=== PATIENT | female | born 1965 | race Caucasian/White ===

== ENCOUNTER 2017-11-25 17:34 | Emergency (ER) | payer BC ==
[2017-11-25 17:39] VITALS: BP 129/85; PULSE 79; TEMP 98; BMI 47.7
--- NOTE | 2017-11-25 17:50 | PDOC ---
History of Present Illness - General Chief Complaint: Injury Stated Complaint: FALL/INJURY Time Seen by Provider: 11/25/17 17:42 History Source: Patient Exam Limitations: No Limitations - History of Present Illness Initial Comments: 11/25/17 18:27 Best Contact: PCP: Dr. Stovall Pmhx: Asthma/no history of intubation or recent admissions, hypertension, diastolic dysfunction Pshx: 2013: Laparoscopic cholecystectomy/1997, 1999: , BTL 2002 Allergies: NO KNOWN DRUG ALLERGIES FH: Mother 73 years old and alive with hypertension and asthma, father at 58 years ago from melanoma Social Hx: Cigarettes/ 0 Alcohol/ 0 Drugs/0 LMP:N/A 52-year-old female presents to the emergency department complaining of right upper arm pain, right sided mid back pain s/p tripped and fell. Patient states while walking down a flight of stairs, she was leading with the right foot when she slipped and missed 4 steps causing her to hit her right mid back against a shelf that runs along the staircase causing her to fall back. Patient denies LOC , head injury, headache, dizziness, lightheadedness, facial pains, sore throat, neck stiffness, chest pain, shortness of breath, abdominal pains, flank pains, midline back pains, urinary symptoms: Frequency/urgency/hesitancy, hematuria. Patient states the pain is on the most lateral right muscular mid back which is exacerbated on touch and alleviated minimally at rest in a sitting position. Past History - Past Medical History Allergies/Adverse Reactions: Allergies Allergy/AdvReac Type Severity Reaction Status Date / Time No Known Drug Allergies Allergy Verified 11/25/17 17:34 Home Medications: Ambulatory Orders Hydrochlorothiazide 25 mg PO DAILY 09/03/15 Docusate Sodium [Colace -] 100 mg PO BID #14 capsule 11/25/17 Lisinopril [Zestril] 2.5 mg PO ASDIR 11/25/17 Oxycodone HCl/Acetaminophen [Percocet 5-325 mg Tablet] 1 - 2 tab PO Q6H #12 tab MDD 5 11/25/17 Asthma: Yes COPD: No HTN: Yes - Surgical History Abdominal Surgery: Yes Cholecystectomy: Yes - Immunization History Immunization Up to Date: Yes (FLU UP TO DATE) - Suicide/Smoking/Psychosocial Hx Smoking Status: No Smoking History: Never smoked Number of Cigarettes Smoked Daily: 0 Hx Alcohol Use: No Drug/Substance Use Hx: No Substance Use Type: None Review of Systems - Review of Systems Able to Perform ROS?: Yes Comments:: 11/25/17 18:32 CONSTITUTIONAL: Absent: fever, chills, diaphoresis, generalized weakness, malaise, loss of appetite HEENT: Absent: rhinorrhea, nasal congestion, throat pain, throat swelling, difficulty swallowing, mouth swelling, ear pain, eye pain, visual Changes CARDIOVASCULAR: Absent: chest pain, loss of consciousness, palpitations, irregular heart rate, peripheral edema RESPIRATORY: Absent: cough, shortness of breath, dyspnea with exertion, orthopnea, wheezing, stridor, hemoptysis GASTROINTESTINAL: Absent: abdominal pain, abdominal distension, nausea, vomiting, diarrhea, constipation, melena, hematochezia GENITOURINARY: Absent: dysuria, frequency, urgency, hesitancy, hematuria, flank pain, genital pain MUSCULOSKELETAL: +mid right lat muscular mid back pain Neg SLR Right mid humerus pain neg shoulder pain Neg ext numnbess/tingling sensation Absent: myalgia, arthralgia, joint swelling SKIN: Absent: rash, itching, pallor HEMATOLOGIC/IMMUNOLOGIC: Absent: easy bleeding, easy bruising, lymphadenopathy, frequent infections ENDOCRINE: Absent: unexplained weight gain, unexplained weight loss, heat intolerance, cold intolerance NEUROLOGIC: Absent: headache, focal weakness or paresthesias, dizziness, unsteady gait, seizure, mental status changes, bladder or bowel incontinence PSYCHIATRIC: Absent: anxiety, depression, suicidal or homicidal ideation, hallucinations. 11/25/17 18:32 Is the patient limited Czech proficient: No *Physical Exam - Vital Signs Last Vital Signs Temp Pulse Resp BP Pulse Ox 98.0 F 79 20 129/85 100 11/25/17 17:35 11/25/17 17:35 11/25/17 17:35 11/25/17 17:35 11/25/17 17:35 - Physical Exam Comments: 11/25/17 18:32 GENERAL: Well developed, well nourished. Awake and alert. No acute distress. HEENT: Normocephalic, atraumatic. PERRLA, EOMI. No conjunctival pallor. Sclera are non- icteric. Moist mucous membranes. Oropharynx is clear. NECK: Supple. Full ROM. No JVD. Carotid pulses 2+ and symmetric, without bruits. No thyromegaly. No lymphadenopathy. CARDIOVASCULAR: Regular rate and rhythm. No murmurs, rubs, or gallops. Distal pulses are 2+ and symmetric. PULMONARY: No evidence of respiratory distress. Lungs clear to auscultation bilaterally. No wheezing, rales or rhonchi. ABDOMINAL: Soft. Non-tender. Non-distended. No rebound or guarding. No organomegaly. Normoactive bowel sounds. MUSCULOSKELETAL Normal range of motion at all joints. No bony deformities or tenderness. No CVA tenderness. EXTREMITIES: No cyanosis. No clubbing. No edema. No calf tenderness. SKIN: Warm and dry. Normal capillary refill. No rashes. No jaundice. NEUROLOGICAL: Alert, awake, appropriate. Cranial nerves 2-12 intact. No deficits to light touch and temperature in face, upper extremities and lower extremities. No motor deficits in the in face, upper extremities and lower extremities. Normoreflexic in the upper and lower extremities. Normal speech. Toes are down- going bilaterally. Gait is normal without ataxia. PSYCHIATRIC: Cooperative. Good eye contact. Appropriate mood and affect. Progress Note - Progress Note Progress Note: 0953hrs: Patient so far had Flexeril 10 mg by mouth, Toradol 50 mg IM, Percocet 5/325 one tab by mouth. Pt states she feels better and wishes to be d/c Medical Decision Making - Medical Decision Making 11/25/17 18:34 52-year-old female presents to the ER complaining of right sided mid lateral back with mid right humeral pain after she missed her footing and fell down about 4 steps landing on her mid back against the shelf that runs along the right side of her staircase. No LOC. Patient had an x-ray of her right upper arm which was negative. Absolutely no midline tenderness from the superior aspect of her cervical spine all the way down to her coccyx spine with percussion. Patient was given Toradol 60 mg IM with 10 mg of Flexeril. Patient will be discharged to follow up with neurosurgery for back pain. *DC/Admit/Observation/Transfer Diagnosis at time of Disposition: Fall (on) (from) other stairs and steps, initial encounter Contusion Qualifiers: Encounter type: initial encounter Contusion area: upper arm Laterality: right Qualified Code(s): S40.021A - Contusion of right upper arm, initial encounter Back pain Qualifiers: Back pain location: thoracic back pain Chronicity: acute Back pain laterality: right Qualified Code(s): M54.6 - Pain in thoracic spine - Discharge Dispostion Condition at time of disposition: Stable Decision to Admit order: No - Prescriptions Prescriptions: Docusate Sodium [Colace -] 100 mg PO BID #14 capsule Oxycodone HCl/Acetaminophen [Percocet 5-325 mg Tablet] 1 - 2 tab PO Q6H #12 tab MDD 5 - Referrals Referrals: Laci Gilbert MD [Primary Care Provider] - Sheldon Larose MD [Staff Physician] - - Patient Instructions Printed Discharge Instructions: DI for Contusion, How to Prevent Falls Additional Instructions: Ice; 20 mins on alternating with 20 mins off for 48 hours while awake. Rest Elevate Follow up with your neurosurgeon or the one listed on the discharge form. Return to the ER for severe/persistent/worsening symptoms, extremity numbness/ tingling sensation. Percocet prescription take 1 tablet every 6 hours for excruciating pain - Post Discharge Activity Forms/Work/School Notes: Back to Work
[2017-11-25] MEDS ORDERED: KETOROLAC TROMETHAMINE 60 MG/2 ML VIAL IM ONE (18:23)
[2017-11-25] MEDS ORDERED: CYCLOBENZAPRINE HCL 10 MG TABLET (FP) PO ONE (18:24)
[2017-11-25] MEDS ORDERED: KETOROLAC TROMETHAMINE 60 MG/2 ML VIAL ONE (18:26)
[2017-11-25] MEDS ORDERED: CYCLOBENZAPRINE HCL 10 MG TABLET (FP) ONE ×2 (18:27→18:28)
== END 2017-11-25 20:38 | disposition home or self-care (01) ==
LOC: JER 17:34
PROC: 3E0233Z Introduction of Anti-inflammatory into Muscle, Percutaneous Approach (ICD-10-PCS; principal; 2017-11-25)
DX: S29.8XXA Other specified injuries of thorax, initial encounter (principal); S40.021A Contusion of right upper arm, initial encounter; W10.8XXA Fall (on) (from) other stairs and steps, initial encounter; Y93.89 Activity, other specified; Y92.018 Other place in single-family (private) house as the place of occurrence of the external cause; I10 Essential (primary) hypertension; J45.909 Unspecified asthma, uncomplicated
CPT/HCPCS: 72070-TC-FY; 72100-TC-FY; 73060-TC-RT-FY; 99281-25

== ENCOUNTER 2018-05-18 20:31 | Emergency (ER) | payer BC ==
[2018-05-18 20:38] VITALS: BP 150/74; PULSE 77; TEMP 97.4; BMI 47.7
--- NOTE | 2018-05-18 20:42 | PDOC ---
History of Present Illness - General Chief Complaint: Headache Stated Complaint: DIZZY Time Seen by Provider: 05/18/18 20:41 - History of Present Illness Initial Comments: 05/18/18 20:59 The patient is a 52 year old female with a history of HTN who presents for evaluation of headache, dizziness, and nausea. The patient report acute onset of room spinning dizziness after eating dinner today with associated frontal pressure like headache and nausea prompting her presentation to the ED for further evaluation. She notes that her dizziness has somewhat improved but is still present. She denies similar symptoms in the past and otherwise denies fevers, chills, SOB, chest pain, vomiting, abdominal pain, numbness, tingling, weakness, or changes with urination or bowel movements. Past History - Past Medical History Allergies/Adverse Reactions: Allergies Allergy/AdvReac Type Severity Reaction Status Date / Time No Known Drug Allergies Allergy Verified 05/18/18 20:39 Home Medications: Ambulatory Orders Hydrochlorothiazide 25 mg PO DAILY 09/03/15 Lisinopril [Zestril] 2.5 mg PO ASDIR 11/25/17 Meloxicam [Mobic] 15 mg PO DAILY 05/18/18 Asthma: Yes COPD: No HTN: Yes - Surgical History Abdominal Surgery: Yes Cholecystectomy: Yes - Immunization History Immunization Up to Date: Yes (FLU UP TO DATE) - Suicide/Smoking/Psychosocial Hx Smoking Status: No Smoking History: Never smoked Have you smoked in the past 12 months: No Number of Cigarettes Smoked Daily: 0 Information on smoking cessation initiated: No Hx Alcohol Use: No Drug/Substance Use Hx: No Substance Use Type: None Review of Systems - Review of Systems Comments:: 05/18/18 21:01 Constitutional: No fevers, chills, fatigue, malaise HEENT: Visual changes. No Rhinorrhea, nasal congestion, Cardiovascular: No chest pain, syncope, palpitations, lightheadedness Respiratory: No Cough, SOB, Hemoptysis, Gastrointestinal: Nausea. No Abdominal pain, Vomiting, Constipation, Diarrhea, Melena Genitourinary: No Dysuria, Frequency, Urgency, Hesitancy, Hematuria, Flank pain Musculoskeletal: No Myalgia, arthralgia Skin: No rashes, itching, bruising, pallor Neurologic: Headache, Dizziness. No Numbness, Weakness, or Tingling Psychiatric: No Hallucinations. No SI or HI *Physical Exam - Vital Signs Last Vital Signs Temp Pulse Resp BP Pulse Ox 97.4 F L 77 16 150/74 99 05/18/18 20:36 05/18/18 20:36 05/18/18 20:36 05/18/18 20:36 05/18/18 20:36 - Physical Exam Comments: 05/18/18 21:02 General Appearance: Nourished. No Apparent Distress HEENT: EOMI, JOAQUÍN. No Pharyngeal Erythema, Tonsillar Exudate, Tonsillar Erythema Neck: No Cervical Lymphadenopathy Respiratory/Chest: Lungs Clear, Normal Breath Sounds. No Crackles, Rales, Rhonchi, Wheezing Cardiovascular: Regular Rhythm, Regular Rate. No Murmur, Gallops, Rubs Gastrointestinal/Abdominal: Normal Bowel Sounds, Soft. No Guarding, Rebound, Tenderness Musculoskeletal: No CVA Tenderness Extremity: Normal Capillary Refill Integumentary: Normal Color, Dry, Warm Neurologic: vacation planner II-XII NML intact, Fully Oriented, Alert, Normal Mood/Affect, Normal Response, Motor Strength 5/5. Normal Finger to Nose and Heel to Jim ED Treatment Course - LABORATORY CBC & Chemistry Diagram: 05/18/18 21:10 05/18/18 21:10 Medical Decision Making - Medical Decision Making 05/18/18 21:02 The patient is a 52 year old female with a history of HTN who presents for evaluation of headache, dizziness, and nausea. Differential includes but is not limited to: Migraine headache, Vertigo, Intracranial process, Infectious, Metabolic Derangement. Given the patient's history and physical exam, we will obtain a cbc, cmp, ekg, head CT to evaluate further. We will treat with iv fluids, reglan, benadryl, tylenol, meclazine and continue to monitor and reassess while here in the ED. 05/18/18 22:26 CBC, cmp, are unremarkable. Head CT is unremarkable as preliminarily read by our production proofreader radiologist. The patient reports improvement in her symptoms. We are comfortable discharging the patient home with neurology follow up. We discussed the results, plan, and return precautions with the patient who voiced understanding and is agreeable with the plan. *DC/Admit/Observation/Transfer Diagnosis at time of Disposition: Dizziness Headache Qualifiers: Headache type: unspecified Headache chronicity pattern: unspecified pattern Intractability: not intractable Qualified Code(s): R51 - Headache - Discharge Dispostion Disposition: HOME Condition at time of disposition: Stable Decision to Admit order: No - Referrals Referrals: Laci Gilbert MD [Primary Care Provider] - Fernando Colon MD [Staff Physician] - - Patient Instructions Printed Discharge Instructions: DI for Headache Additional Instructions: Please return to the ER if you experience concerning or worsening symptoms including worsening difficulty breathing, weakness, or chest pain, numbness, vomiting, worsening headache. Your lab results and Head CT were normal here in the ER. Please call to schedule a follow up appointment with our Neurologist Dr. Colon within 2-3 days to discuss your ER visit and further management of your symptoms. - Post Discharge Activity
[2018-05-18] MEDS ORDERED: SODIUM CHLORIDE 1,000 ML IV STA (20:49)
[2018-05-18] MEDS ORDERED: METOCLOPRAMIDE HCL INJECTION 10 MG/2 ML VIAL IVPUSH ONE (20:49)
[2018-05-18] MEDS ORDERED: MECLIZINE HCL 25 MG TABLET (FP) PO ONE (20:49)
[2018-05-18] MEDS ORDERED: ACETAMINOPHEN 1000 MG/100 ML VIAL (NON FORMULARY) IVPB ONE (20:55)
[2018-05-18] MEDS ORDERED: MECLIZINE HCL 25 MG TABLET (FP) ONE (20:58)
[2018-05-18] MEDS ORDERED: METOCLOPRAMIDE HCL INJECTION 10 MG/2 ML VIAL ONE (20:58)
[2018-05-18] MEDS ORDERED: ACETAMINOPHEN INJECTION 100 ML IVPB ONE (20:59)
[2018-05-18 21:17] LABS: BASO % 0.5 % (0-2.0); EOS % 3.4 % (0-4.5); HEMATOCRIT 44.2 % (32.4-45.2); HEMOGLOBIN 14.6 GM/dL (10.7-15.3); LYMPH % 24.7 % (8-40); MCH 27.1 pg (25.7-33.7); MEAN CELL VOLUME 82.3 fl (80-96); MEAN PLT VOLUME 8.5 fl (7.5-11.1); MONO % 4.7 % (3.8-10.2); NEUT % 66.7 % (42.8-82.8); PLATELET COUNT 292 K/MM3 (134-434); RBC 5.37 M/mm3 (3.60-5.2); RDW 14.9 % (11.6-15.6); WHITE BLOOD COUNT 10.1 K/mm3 (4.0-10.0)
[2018-05-18 21:45] LABS: ALBUMIN 4.1 g/dl (3.4-5.0); ALK PHOS 122 U/L (45-117); ANION GAP 10 MMOL/L (8-16); BILIRUBIN,TOTAL 0.3 mg/dL (0.2-1); BLOOD UREA NITROGEN 24 mg/dL (7-18); CALCIUM 8.8 mg/dL (8.5-10.1); CHLORIDE 104 mmol/L (98-107); CO2 26 mmol/L (21-32); CREATININE 0.8 mg/dL (0.55-1.3); GLUCOSE,RANDOM 87 mg/dL (74-106); POTASSIUM 4.1 mmol/L (3.5-5.1); SGOT/AST 14 U/L (15-37); SGPT/ALT 22 U/L (13-61); SODIUM 140 mmol/L (136-145); TOT PROT 7.8 g/dl (6.4-8.2)
--- NOTE | 2018-05-18 22:59 | PDOC ---
Attending Attestation - [facility] HPI: 05/18/18 23:03 The patient is a 52 year old female, with a significant PMH of HTN, optimal migraine, and asthma, who presents to the emergency department complaining of a headache and vertigo after eating dinner today. The patient states she had a Big Mac for dinner and started to feel like the room was spinning accompanied with mild visual changes. The episode lasted for 2 to 3 minutes. The patient also endorses associated symptoms of tingling of the hands, nausea and frontal pressure headache. The patient denies numbness or weakness. The patient denies chest pain and shortness of breath. Denies fever, chills, vomit, diarrhea and constipation. Denies dysuria, frequency, urgency and hematuria. Allergies: NKDA Past surgical history:Abdominal and cholecystectomy Social history: None reported PCP: None reported Documentation prepared by Teresa August, acting as mobile paramedical examiner for Nadia Chung MD. - Physicial Exam PE: 05/18/18 23:04 Well developed, well nourished. Awake and alert. No acute distress. HEENT: Normocephalic, atraumatic. PERRLA, EOMI. No conjunctival pallor. Sclera are non- icteric. Moist mucous membranes. Oropharynx is clear. NECK: Supple. Full ROM. No JVD. Carotid pulses 2+ and symmetric, without bruits. No thyromegaly. No lymphadenopathy. CARDIOVASCULAR: Regular rate and rhythm. No murmurs, rubs, or gallops. Distal pulses are 2+ and symmetric. PULMONARY: No evidence of respiratory distress. Lungs clear to auscultation bilaterally. No wheezing, rales or rhonchi. ABDOMINAL: +Protruded abdomen but Soft. Non-tender. Non-distended. No rebound or guarding. No organomegaly. Normoactive bowel sounds. MUSCULOSKELETAL Normal range of motion at all joints. No bony deformities or tenderness. No CVA tenderness. EXTREMITIES: No cyanosis. No clubbing. No edema. No calf tenderness. SKIN: Warm and dry. Normal capillary refill. No rashes. No jaundice. NEUROLOGICAL: Alert, awake, appropriate. Cranial nerves 2-12 intact. PSYCHIATRIC: Cooperative. Good eye contact. Appropriate mood and affect. Documentation prepared by Teresa August, acting as mobile paramedical examiner for Nadia Chung MD. <Teresa August - Last Filed: 05/18/18 23:03> - Resident Resident Name: Jas Wilder - ED Attending Attestation I have performed the following: I have examined & evaluated the patient, The case was reviewed & discussed with the resident, I agree w/resident's findings & plan, Exceptions are as noted - Medical Decision Making 05/21/18 01:[address] scan head no gross focal neuro deficits symptoms improved and pt d /c home <Nadia Chung - Last Filed: 05/21/18 01:10>
--- NOTE | 2018-05-19 18:28 | EKG ---
Test Reason : Blood Pressure : / mmHG Vent. Rate : 074 BPM Atrial Rate : 074 BPM P-R Int : 156 ms QRS Dur : 092 ms QT Int : 406 ms P-R-T Axes : 059 021 035 degrees QTc Int : 450 ms NORMAL SINUS RHYTHM NORMAL ECG WHEN COMPARED WITH ECG OF 17-NOV-2013 08:59, NO SIGNIFICANT CHANGE WAS FOUND Confirmed by YANET GAO MD ([id number]) on 05/19/2018 6:28:34 PM Referred By: Confirmed By:YANET GAO MD
== END 2018-05-18 22:42 | disposition home or self-care (01) ==
LOC: JER 20:31
PROC: 3E033NZ Introduction of Analgesics, Hypnotics, Sedatives into Peripheral Vein, Percutaneous Approach (ICD-10-PCS; principal; 2018-05-18)
PROC: 3E033GC Introduction of Other Therapeutic Substance into Peripheral Vein, Percutaneous Approach (ICD-10-PCS; 2018-05-18)
PROC: 3E033GC Introduction of Other Therapeutic Substance into Peripheral Vein, Percutaneous Approach (ICD-10-PCS; 2018-05-18)
DX: R51 Headache (principal); R42 Dizziness and giddiness; I10 Essential (primary) hypertension; Z87.09 Personal history of other diseases of the respiratory system; Z86.69 Personal history of other diseases of the nervous system and sense organs
CPT/HCPCS: 36415; 70450-TC; 80053; 85025; 93005; 93010; 99283-25; J0131; J7030

== ENCOUNTER 2018-11-03 05:06 | Day surgery (SDC) | payer BC ==
[2018-10-29 17:31] VITALS: BMI 50.1
[2018-11-03] MEDS ORDERED: BUPIVACAINE HCL/PF 0.25% (2.5MG/ML) 10 ML VIAL ONE (07:41)
[2018-11-03] MEDS ORDERED: methylPREDNISolone ACET (DEPO) 80 MG/1 ML VIAL ONE (07:41)
[2018-11-03] MEDS ORDERED: MIDAZOLAM HCL 2 MG/2 ML SINGLE DOSE VIAL ONE (08:25)
[2018-11-03] MEDS ORDERED: DEXAMETHASONE SOD PHOSPHATE 4 MG/1 ML VIAL ONE (08:38)
[2018-11-03] MEDS ORDERED: BUPIVACAINE HCL/PF 0.25% (2.5MG/ML) 10 ML VIAL IJ ONE (08:49)
[2018-11-03] MEDS ORDERED: LIDOCAINE HCL 1% PRESERVATIVE FREE - 30ML VIAL IJ ONE (08:49)
[2018-11-03] MEDS ORDERED: methylPREDNISolone ACET (DEPO) 80 MG/1 ML VIAL IJ ONE (08:49)
[2018-11-03] MEDS ORDERED: ONDANSETRON 4 MG/2 ML VIAL IVPUSH PRN (11:45)
[2018-11-03] MEDS ORDERED: oxyCODONE HCL 5 MG TABLET PO PRN (11:45)
[2018-11-03] MEDS ORDERED: LACTATED RINGERS SOLUTION 1,000 ML IV SCH (11:45)
[2018-11-03] MEDS ORDERED: ACETAMINOPHEN 325 MG TABLET (FP) PO PRN (11:45)
[2018-11-03 12:06] VITALS: BP 115/66; PULSE 86; TEMP 97.9
--- NOTE | 2018-11-04 06:16 | OP ---
DATE OF OPERATION: 11/03/2018 PREOPERATIVE DIAGNOSIS: L4-L5 spondylolisthesis with left L4 and L5 radiculopathy. POSTOPERATIVE DIAGNOSIS: L4-L5 spondylolisthesis with left L4 and L5 radiculopathy. ATTENDING SURGEON: Sheldon Jack MD PROCEDURE: 1. Left L4-L5 epidural steroid injection. 2. Intraoperative fluoroscopy. ANESTHESIA: Local with IV sedation. ANESTHESIOLOGIST: Bashir Soto MD INDICATIONS: The patient is a 53-year-old female with intractable lower back pain and left lower extremity radiculopathy. X-rays demonstrate L4-L5 spondylolisthesis. Because of intractable symptoms and failure of conservative treatment, she is here for the first epidural steroid injection. The risks of the procedure include, but are not limited to, bleeding, infection, spinal headache, and neurological injury. The patient understands the indications for the procedure, the procedure in detail, risks and benefits, and alternative treatments for her lumbar condition, and she wishes to proceed. No guarantees were given for a favorable outcome. PROCEDURE IN DETAIL: After the patient was taken to the operating room, she was placed in the prone position with a pillow under her hips. Lumbar region was cleaned with alcohol and prepped with Betadine. A skin wheal was raised with 5 mL of 1% Xylocaine. A 20-degree spinal needle was inserted under AP and lateral fluoroscopic guidance from a left-sided approach to L4-L5 interlaminar space. Loss of resistance technique was utilized, and there was no CSF or blood backflow. Depo-Medrol 80 mg and 1 mL of 0.25% Marcaine were injected, and the needle was withdrawn and sterile bandage was applied. Because of the patients body habitus, a 5-inch 22-gauge spinal needle was needed in order to reach the epigastric space adequately. The patient suffered from a headache and has no nausea or vomiting. She was moving bilateral lower extremities after the injection. OR time-out procedure was followed. SHELDON JACK M.D. [id number]
== END 2018-11-03 11:30 | disposition home or self-care (01) ==
LOC: JASU-SURG 05:06
PROVIDERS: ATTEND Neurological Surgery
PROC: 3E0R33Z Introduction of Anti-inflammatory into Spinal Canal, Percutaneous Approach (ICD-10-PCS; 2018-11-03)
PROC: B01BZZZ Fluoroscopy of Spinal Cord (ICD-10-PCS; 2018-11-03)
PROC: 3E0R3BZ Introduction of Anesthetic Agent into Spinal Canal, Percutaneous Approach (ICD-10-PCS; principal; 2018-11-03 08:30)
DX: M43.16 Spondylolisthesis, lumbar region (principal); M54.16 Radiculopathy, lumbar region
CPT/HCPCS: 76000-TC-FY

== ENCOUNTER 2018-12-15 13:32 | Inpatient (IN) | payer BC ==
[2018-12-15] MEDS ORDERED: dilTIAZem HCL 50 MG/10 ML - 10 ML VIAL IVPUSH ONE ×2 (13:37→14:02)
--- NOTE | 2018-12-15 13:44 | PDOC ---
Attending Attestation - Resident Resident Name: Denton Temple - ED Attending Attestation I have performed the following: I have examined & evaluated the patient, The case was reviewed & discussed with the resident, I agree w/resident's findings & plan, Exceptions are as noted - HPI HPI: 12/15/18 13:48 53y F hypertension, ?diastolic failure?, Presents with sudden onset of palpitations, chest pressure that started approximately 20 minutes prior to presentation. States patient states that she was well this morning was otherwise asymptomatic after eating lunch she started feeling lightheaded, and some chest pressure so was brought to the ER for evaluation. 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 The patient denies any stimulant use, new medications. Upon arrival to the emergency department the patient was on a monitor her heart rate was in the 140s appeared to be irregularly irregular, cw afib. Her blood pressure was 140/68. She did endorse some chest pressure but was mentating well. The patient denies any abdominal pain, nausea, vomiting, back pain, headache, current lightheadedness, urinary bowel incontinence. new onset rapid afib, pt given 10mg of diltiazem with improvement of rate to the 112 - Physicial Exam PE: 12/15/18 14:05 GENERAL: The patient is awake, alert, and fully oriented, Nontoxic - in no acute distress. HEAD: Normocephalic, atraumatic. EYES: extraocular movements intact, sclera anicteric, conjunctiva clear. ENT: Normal voice, Moist mucous membranes. NECK: Normal range of motion, supple LUNGS: Breath sounds equal, clear to auscultation bilaterally. No wheezes, no rhonchi, no rales. HEART: tachycardic, irregularly irregular ABDOMEN: Soft, nontender,No guarding, no rebound. . No CVA tenderness EXTREMITIES: Normal range of motion, b/l LE edema. no calf tenderness, negative homans PSYCH: Normal mood, normal affect. SKIN: Warm, Dry, normal turgor, - Critical Care Time Total Critical Care Time: 45 Critical Care Statement: The care of this patient involved high complexity decision making to prevent further life threatening deterioration of the patient 's condition and/or to evaluate & treat vital organ system(s) failure or risk of failure. - Medical Decision Making 12/18/18 22:26 see above Heart Score/ECG Review - ECG Impressions Comment:: 12/15/18 14:10 Twelve-lead EKG was performed and reviewed by me. Original EKG performed at 1323 Irregularly irregular, rate of 143 Poor baseline with artifact no obvious signs of ST elevations or depressions Impression A. fib with RVR repeta ekg performed 13:38 Twelve-lead EKG was performed and reviewed by me. irregularly irregular rate of [address]-T wave changes Impression: A. fib with RVR
[2018-12-15] MEDS ORDERED: ASPIRIN 81 MG CHEWABLE TABLETS PO ONE (13:53)
[2018-12-15] MEDS ORDERED: dilTIAZem HCL 30 MG TABLET (FP) PO ONE (13:53)
--- NOTE | 2018-12-15 14:03 | CON.CARD ---
Consult Consult Specialty:: Cardiology - History of Present Illness History of Present Illness: 53y F hypertension, ?diastolic failure?, Presents with sudden onset of palpitations, chest pressure that started approximately 20 minutes prior to presentation. States patient states that she was well this morning was otherwise asymptomatic after eating lunch she started feeling lightheaded, and some chest pressure so was brought to the ER for evaluation. She states she occasionally has a extra beat here and there due to PVCs that is known by her gamma operator but has never felt like she is now. The patient denies any stimulant use, new medications. Upon arrival to the emergency department the patient was on a monitor her heart rate was in the 140s appeared to be irregularly irregular, cw afib. Her blood pressure was 140/68. She did endorse some chest pressure but was mentating well. The patient denies any abdominal pain, nausea, vomiting, back pain, headache, current lightheadedness, urinary bowel incontinence. 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 never smoked previously drank socially but now doesn't drink at all - Past Medical History Pulmonary: Yes: Asthma. No: Bronchitis, Cancer, COPD, O2 Dependent, Pneumonia, Previously Intubated, Pulmonary Embolus, Pulmonary Fibrosis, Sleep Apnea, Other Hepatobiliary: Yes: Cholelithiasis - Alcohol/Substance Use Hx Alcohol Use: No - Smoking History Smoking history: Never smoked Have you smoked in the past 12 months: No Aproximately how many cigarettes per day: 0 Home Medications - Allergies Allergies/Adverse Reactions: Allergies Allergy/AdvReac Type Severity Reaction Status Date / Time No Known Drug Allergies Allergy Verified 12/15/18 13:44 - Home Medications Home Medications: Ambulatory Orders Hydrochlorothiazide 25 mg PO DAILY 09/03/15 Lisinopril [Zestril] 2.5 mg PO DAILY 11/25/17 Meloxicam [Mobic] 15 mg PO DAILY 05/18/18 Ibuprofen [Motrin -] 600 mg PO BID 10/29/18 Methylprednisolone [Medrol Dose Rush] 4 mg PO ASDIR 10/29/18 Ranitidine HCl [Zantac] 150 mg PO DAILY 10/29/18 Review of Systems - Review of Systems Constitutional: reports: No Symptoms Eyes: reports: No Symptoms HENT: reports: No Symptoms Neck: reports: No Symptoms Cardiovascular: reports: Palpitations Gastrointestinal: reports: No Symptoms Genitourinary: reports: No Symptoms Breasts: reports: No Symptoms Reported Musculoskeletal: reports: No Symptoms Integumentary: reports: No Symptoms Neurological: reports: No Symptoms Endocrine: reports: No Symptoms Hematology/Lymphatic: reports: No Symptoms Psychiatric: reports: No Symptoms Vital Signs: Vital Signs Temperature 98.2 F 12/15/18 13:37 Pulse Rate 146 H 12/15/18 13:37 Respiratory Rate 22 H 12/15/18 13:37 Blood Pressure 133/46 L 12/15/18 13:37 O2 Sat by Pulse Oximetry (%) 100 12/15/18 13:37 Constitutional: Yes: Well Nourished, No Distress, Calm Eyes: Yes: WNL, Conjunctiva Clear, EOM Intact HENT: Yes: WNL, Atraumatic, Normocephalic Neck: Yes: WNL, Supple, Trachea Midline Respiratory: Yes: WNL, Regular, CTA Bilaterally Gastrointestinal: Yes: WNL, Normal Bowel Sounds Renal/: Yes: WNL Cardiovascular: Yes: Pulse Irregular Heart Sounds: Yes: S1, S2 Murmur: Yes: Systolic Murmur, Grade 3 Musculoskeletal: Yes: WNL Extremities: Yes: WNL Integumentary: Yes: WNL Neurological: Yes: WNL, Alert, Oriented ...Motor Strength: WNL Psychiatric: Yes: WNL, Alert, Oriented Imaging - Results Chest X-ray: Pending EKG: Pending Problem List - Problems (1) Abnormal resting ECG findings Code(s): R94.31 - ABNORMAL ELECTROCARDIOGRAM [ECG] [EKG] (2) Asthma Code(s): J45.909 - UNSPECIFIED ASTHMA, UNCOMPLICATED (3) Back pain Code(s): M54.9 - DORSALGIA, UNSPECIFIED Qualifiers: Back pain location: thoracic back pain Chronicity: acute Back pain laterality: right Qualified Code(s): M54.6 - Pain in thoracic spine (4) Bradycardia Code(s): R00.1 - BRADYCARDIA, UNSPECIFIED (5) Cholecystitis, acute Code(s): K81.0 - ACUTE CHOLECYSTITIS (6) Contusion Code(s): T14.8XXA - OTHER INJURY OF UNSPECIFIED BODY REGION, INITIAL ENCOUNTER Qualifiers: Encounter type: initial encounter Contusion area: upper arm Laterality: right Qualified Code(s): S40.021A - Contusion of right upper arm, initial encounter (7) Dizziness Code(s): R42 - DIZZINESS AND GIDDINESS (8) Fall (on) (from) other stairs and steps, initial encounter Code(s): W10.8XXA - FALL (ON) (FROM) OTHER STAIRS AND STEPS, INITIAL ENCOUNTER (9) Headache Code(s): R51 - HEADACHE Qualifiers: Headache type: unspecified Headache chronicity pattern: unspecified pattern Intractability: not intractable Qualified Code(s): R51 - Headache (10) Morbid obesity Code(s): E66.01 - MORBID (SEVERE) OBESITY DUE TO EXCESS CALORIES (11) Right lower lobe pneumonia Code(s): J18.9 - PNEUMONIA, UNSPECIFIED ORGANISM Qualifiers: Pneumonia type: due to unspecified organism Qualified Code(s): J18.1 - Lobar pneumonia, unspecified organism Assessment/Plan new onset af rvr [id number] score 2 htn morbid obesity ?MVP Plan echo rate control cardizem telemetry AC lovonox most likely will need shelter ac with NOACs
--- NOTE | 2018-12-15 14:08 | PDOC ---
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 20-25 min prior to arrival in the ED). Unable to identity eliciting events. Denies associated SOB. Denies h/o of similar previous episodes. EKG was performed in the PACU, which revealed rapid a-fib with RVR. Pt denies h/o of a-fib. 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 Reports last stress echo three years ago was normal , but believes she has a h/o of diastolic dysfunction. In normal state of health recently. Denies change in medications. PCP: Social Hx: Denies increased caffeine intake or dietary supplements. Medical Hx: - HTN - Asthma - Morbid obesity Review of Systems: In addition to that documented in the HPI above, the additional ROS was obtained : Constitutional: Denies fevers or chills Head: Denies vision changes ENMT: Denies sore throat CV: Per HPI Resp: Denies SOB GI: Denies vomiting or diarrhea : Denies painful urination MSK: Denies recent trauma Skin: Denies new rashes Neuro: Denies new numbness or tingling or weakness Endocrine: Denies polyuria Heme: Denies bleeding or bruising Physical Examination: Constitutional: Well-developed, well-nourished adult female in no acute distress but obvious discomfort. Found semi-fowlers on hospital bed. Alert and oriented x4. Answered all questions appropriately and completely. Speech was non -labored, non-pressured. Cardiovascular / Chest: Regular rapid and irregularly irregular rate and rhythm. No murmur, rubs, clicks, or gallops. Peripheral pulses: radial pulses full. Respiratory: Breathing unlabored. Equal chest rise and fall. Clear to auscultation bilaterally. No stridor, no wheezing, no rhonchi. Neuro: Alert and oriented. Moving all four extremities spontaneously. Skin: Warm, dry, and intact. Psych: Affect: appropriate. Mood: normal. MDM: *Reviewed vital signs, nursing notes, and prior visit documentation (if available). 53 y/o female presenting with chest pressure, dizziness, and palpitations. Found to be in rapid afib with RVR. Vitals unremarkable for hypotension. Physical exam as described above. Suspect new onset, symptomatic rapid a-fib. Unable to identify eliciting factor. Administered IV Diltiazem push, which slowed the rapid and improved the symptoms. Administered PO Diltiazem following improvement. Will page pts field crop farmer for further information. 14:[address] Morelos through office answering service. Awaiting call back. ED attending discussed case with Dr. Strickland. 14:[address] Batres, admitting attending for Dr. Gilbert , through office answering service. Awaiting call back. CBC unremarkable for anemia. CMP unremarkable for significant electrolyte derangement. Troponin not elevated, low suspicion for acute ACS. 15:[address] Batres Verbally appraised of the pts HPI, ED course, and current plan of management. Will admit pt to telemetry. No further orders requested. TSH pending; low suspicion for hyperthyroidism without other symptoms reported. Denton Temple M.D., PGY1 Emergency Medicine Resident Past History - Past Medical History Allergies/Adverse Reactions: Allergies Allergy/AdvReac Type Severity Reaction Status Date / Time No Known Drug Allergies Allergy Verified 12/15/18 13:44 Home Medications: Ambulatory Orders Hydrochlorothiazide 25 mg PO DAILY 09/03/15 Lisinopril [Zestril] 2.5 mg PO DAILY 11/25/17 Meloxicam [Mobic] 15 mg PO DAILY 05/18/18 Ibuprofen [Motrin -] 600 mg PO BID 10/29/18 Methylprednisolone [Medrol Dose Rush] 4 mg PO ASDIR 10/29/18 Ranitidine HCl [Zantac] 150 mg PO DAILY 10/29/18 Asthma: Yes COPD: No HTN: Yes - Surgical History Abdominal Surgery: Yes Cholecystectomy: Yes - Immunization History Immunization Up to Date: Yes (FLU UP TO DATE) - Suicide/Smoking/Psychosocial Hx Smoking Status: No Smoking History: Never smoked Have you smoked in the past 12 months: No Number of Cigarettes Smoked Daily: 0 Information on smoking cessation initiated: No Hx Alcohol Use: No Drug/Substance Use Hx: No Substance Use Type: None Hx Substance Use Treatment: No *Physical Exam - Vital Signs Last Vital Signs Temp Pulse Resp BP Pulse Ox 98.2 F 146 H 22 H 133/46 L 100 12/15/18 13:37 12/15/18 13:37 12/15/18 13:37 12/15/18 13:37 12/15/18 13:37 ED Treatment Course - LABORATORY CBC & Chemistry Diagram: 12/15/18 13:52 12/15/18 13:52 - Medications Given in the ED: ED Medications Discontinued Medications Generic Name Dose Route Start Last Admin Trade Name Freq PRN Reason Stop Dose Admin Diltiazem HCl 10 mg 12/15/18 13:37 12/15/18 13:39 Cardizem Injection - IVPUSH 12/15/18 13:38 10 mg ONCE ONE Administration *DC/Admit/Observation/Transfer Diagnosis at time of Disposition: Atrial fibrillation with rapid ventricular response, Dizziness, Chest pressure - Discharge Dispostion Condition at time of disposition: Stable Decision to Admit order: Yes - Referrals - Patient Instructions - Post Discharge Activity
[2018-12-15 14:15] LABS: BASO % 0.2 % (0-2.0); EOS % 1.9 % (0-4.5); HEMATOCRIT 39.1 % (32.4-45.2); HEMOGLOBIN 13.2 GM/dL (10.7-15.3); LYMPH % 29.7 % (8-40); MCH 26.9 pg (25.7-33.7); MCHC 33.8 g/dl (32.0-36.0); MEAN CELL VOLUME 79.7 fl (80-96); MEAN PLT VOLUME 9.2 fl (7.5-11.1); MONO % 6.2 % (3.8-10.2); RBC 4.91 M/mm3 (3.60-5.2); RDW 13.9 % (11.6-15.6)
[2018-12-15 14:32] LABS: INR 1.05 (0.83-1.09); PROTHROMBIN TIME (PATIENT) 12.4 SEC (9.7-13.0)
[2018-12-15 14:35] LABS: ACTIVATED PTT 35.4 SECONDS (25.2-36.5)
[2018-12-15 14:36] LABS: MAGNESIUM 1.6 mg/dL (1.8-2.4); PHOSPHOROUS 3.3 mg/dL (2.5-4.9)
[2018-12-15 14:40] LABS: ALBUMIN 3.8 g/dl (3.4-5.0); ALK PHOS 60 U/L (45-117); ANION GAP 8 MMOL/L (8-16); BILIRUBIN,TOTAL 0.5 mg/dL (0.2-1); BLOOD UREA NITROGEN 14.9 mg/dL (7-18); CALCIUM 9.5 mg/dL (8.5-10.1); CHLORIDE 103 mmol/L (98-107); CO2 29 mmol/L (21-32); CREATININE 0.7 mg/dL (0.55-1.3); GLUCOSE,RANDOM 109 mg/dL (74-106); POTASSIUM 3.1 mmol/L (3.5-5.1); SGOT/AST 16 U/L (15-37); SGPT/ALT 35 U/L (13-61); SODIUM 139 mmol/L (136-145); TOT PROT 6.8 g/dl (6.4-8.2)
[2018-12-15 14:59] LABS: PLATELET COUNT 207 K/MM3 (134-434)
[2018-12-15] MEDS ORDERED: dilTIAZem HCL 60 MG TABLET (FP) ONE (15:13)
[2018-12-15] MEDS ORDERED: ENOXAPARIN NA (PORCINE) 30 MG/0.3 ML DISP.SYRIN SQ ONE (15:13)
[2018-12-15] MEDS ORDERED: ENOXAPARIN NA (PORCINE) 100 MG/1 ML DISP.SYRIN SQ ONE (15:13)
[2018-12-15] MEDS ORDERED: dilTIAZem HCL 60 MG TABLET (FP) PO ONE (15:55)
[2018-12-15] MEDS ORDERED: MAGNESIUM SULF 50% (8.12 MEQ/2 ML-1 GM VIAL) IVPB ONE (16:00)
[2018-12-15] MEDS ORDERED: MAGNESIUM SULF 50% (8.12 MEQ/2 ML-1 GM VIAL) ONE (16:06)
[2018-12-15] MEDS ORDERED: ASPIRIN 81 MG CHEWABLE TABLETS ONE (16:06)
[2018-12-15] MEDS ORDERED: PANTOPRAZOLE 40 MG TABLET (FP) ONE (16:06)
[2018-12-15] MEDS ORDERED: MAGNESIUM 1GM/D5W - 1 GM/100 ML IVPB IVPB ONE (16:06)
--- NOTE | 2018-12-15 16:07 | ECHO ---
Name: DESTINY MAGALLANES Exam:Adult Echocardiogram Study Date: 12/15/2018 02:47 PM Age: 53 yrs Reason For Study: ef Height: 69 in Weight: 292 lb BSA: 2.4 m2 MMode/2D Measurements & Calculations RV S Cruz: 23.4 cm/sec Doppler Measurements & Calculations Ao V2 max: 248.4 cm/sec LV V1 max P.9 mmHg Ao max P.3 mmHg LV V1 max: 164.9 cm/sec Ao V2 mean: 169.4 cm/sec Ao mean P.2 mmHg Ao V2 VTI: 45.4 cm PA V2 max: 145.5 cm/sec Med Peak E' Cruz: 17.5 cm/sec PA max P.5 mmHg Lat Peak E' Cruz: 11.9 cm/sec Procedure A complete two-dimensional transthoracic echocardiogram was performed (2D, M-mode, Doppler and color flow Doppler). Technically limited study. Left Ventricle The left ventricle is normal in size. Left ventricular systolic function is normal. Ejection Fraction = 60- 65%. No regional wall motion abnormalities noted. Right Ventricle The right ventricle is not well visualized. Atria The left atrial size is normal. Right atrium not well visualized. Mitral Valve The mitral valve is normal in structure and function. There is no mitral regurgitation noted. Tricuspid Valve The tricuspid valve is normal in structure and function. No tricuspid regurgitation. Aortic Valve The aortic valve is normal in structure and function. No aortic regurgitation is present. Pulmonic Valve The pulmonic valve is not well visualized. Great Vessels The aortic root is normal size. Pericardium/Pleura There is no pericardial effusion. Interpretation Summary Technically limited study The left ventricle is normal in size. Left ventricular systolic function is normal. No regional wall motion abnormalities noted. Ejection Fraction = 60-65%. The right ventricle is not well visualized. The left atrial size is normal. Right atrium not well visualized. No significant valvular regurgitations There is no pericardial effusion. Anthony Capone MD 12/15/2018 04:06 PM
[2018-12-15] MEDS: PANTOPRAZOLE 40 MG TABLET (FP) PO SCH (16:12)
[2018-12-15] MEDS ORDERED: ENOXAPARIN NA (PORCINE) 120 MG/0.8 ML DISP.SYRIN SQ ONE (16:49)
[2018-12-15] MEDS: POTASSIUM CHLORIDE TABS 20 MEQ TABLET.ER (FP) PO SCH ×2 (17:40→21:01)
[2018-12-15] MEDS ORDERED: dilTIAZem HCL 60 MG TABLET (FP) PO SCH (18:00)
[2018-12-15] MEDS ORDERED: dilTIAZem HCL 25 MG/5 ML - 5 ML VIAL ONE (18:14)
[2018-12-15] MEDS ORDERED: dilTIAZem HCL 125 MG/25 ML - 25 ML VIAL ONE (18:14)
--- NOTE | 2018-12-15 18:41 | HP ---
Admitting History and Physical - Primary Care Physician PCP: Laci Gilbert - Admission Chief Complaint: Palpitations History Source: Patient Limitations to Obtaining History: No Limitations - Past Medical History Cardiovascular: Yes: HTN Pulmonary: Yes: Asthma. No: Bronchitis, Cancer, COPD, O2 Dependent, Pneumonia, Previously Intubated, Pulmonary Embolus, Pulmonary Fibrosis, Sleep Apnea, Other Hepatobiliary: Yes: Cholelithiasis - Smoking History Smoking history: Never smoked Have you smoked in the past 12 months: No Aproximately how many cigarettes per day: 0 - Alcohol/Substance Use Hx Alcohol Use: No Home Medications - Allergies Allergies/Adverse Reactions: Allergies Allergy/AdvReac Type Severity Reaction Status Date / Time No Known Drug Allergies Allergy Verified 12/15/18 13:44 - Home Medications Home Medications: Ambulatory Orders Hydrochlorothiazide 25 mg PO DAILY 09/03/15 Lisinopril [Zestril] 2.5 mg PO DAILY 11/25/17 Ranitidine HCl [Zantac] 150 mg PO DAILY 10/29/18 Meloxicam [Mobic] 15 mg PO ASDIR 12/15/18 Ranitidine [Zantac -] 150 mg PO DAILY 12/15/18 Review of Systems - Review of Systems Constitutional: reports: No Symptoms Eyes: reports: No Symptoms Neck: reports: No Symptoms Cardiovascular: reports: Palpitations. denies: Chest Pain, Shortness of Breath Respiratory: reports: No Symptoms Gastrointestinal: reports: No Symptoms Genitourinary: reports: No Symptoms Musculoskeletal: reports: No Symptoms Neurological: reports: No Symptoms Physical Examination Vital Signs: Vital Signs Temperature 98.2 F 12/15/18 13:37 Pulse Rate 121 H 12/15/18 14:35 Respiratory Rate 13 12/15/18 14:35 Blood Pressure 126/101 H 12/15/18 14:35 O2 Sat by Pulse Oximetry (%) 97 12/15/18 16:50 Constitutional: Yes: Well Nourished Eyes: Yes: PERRL Neck: Yes: Supple Cardiovascular: Yes: Pulse Irregular, Murmur Respiratory: Yes: CTA Bilaterally Gastrointestinal: Yes: Normal Bowel Sounds, Soft ...Rectal Exam: Yes: Deferred Extremities: Yes: WNL Labs: CBC, BMP 12/15/18 13:52 12/15/18 13:52 Imaging - Results Chest X-ray: Report Reviewed Problem List - Problems (1) Atrial fibrillation with rapid ventricular response Code(s): I48.91 - UNSPECIFIED ATRIAL FIBRILLATION Assessment/Plan Pt with Hx HTN admitted with palpitations. Acute Onset Atrial Fibrillation with Rapid Ventricular Response ICU, Appreciate CArdiology evaluation IV Cardizem, Check TFT's On AC, Check ECHO in AM
[2018-12-15] MEDS ORDERED: DILTIAZEM INJECTION 125 MG in DEXTROSE 5%-WATER - 100 ML IVPB SCH (19:00)
[2018-12-15] MEDS ORDERED: dilTIAZem HCL 25 MG/5 ML - 5 ML VIAL IVPUSH ONE (19:00)
--- NOTE | 2018-12-15 21:41 | CONSULT ---
Consultation: CONSULT SERVICE: ICU Resident HISTORY OF PRESENT ILLNESS: 53yo F with h/o HTN who was admitted due to palpitations and anterior chest pressure found to be in new-onset Afib. Pt was originally placed on telemetry however she had uncontrolled HR with her PO cardizem doses. Pt's BP was sustained throughout, however she was placed on a Cardizem gtt and transferred to ICU for overnight management. Pt currently has controlled HR and stable pressures and feels much better than previously. She reports during her uncontrolled HR she felt frequent palpitations and even slightly lightheadedness alongside of anxiety. Currently she denies any symptoms. PMHx Chronic back pain Obesity (lost 18lbs since trying to lose weight) Mild intermittent asthma SoHx: No consumption of tea or coffee Prior social alcoholic drinker, but now none Never smoked REVIEW OF SYSTEMS: PHYSICAL EXAMINATION Vital Signs 12/15/18 12/15/18 12/15/18 13:37 14:35 16:50 Temperature 98.2 F Pulse Rate 146 H Pulse Rate [ 121 H Apical] Respiratory 22 H 13 Rate Blood Pressure 133/46 L Blood Pressure 126/101 H [Right Arm] O2 Sat by Pulse 100 97 97 Oximetry (%) 12/15/18 12/15/18 12/15/18 17:31 18:30 19:52 Temperature 98.8 F Pulse Rate 110 H 90 92 H Pulse Rate [ Apical] Respiratory 18 17 Rate Blood Pressure 113/85 101/72 Blood Pressure [Right Arm] O2 Sat by Pulse 98 Oximetry (%) 12/15/18 20:03 Temperature Pulse Rate 90 Pulse Rate [ Apical] Respiratory Rate Blood Pressure Blood Pressure [Right Arm] O2 Sat by Pulse 98 Oximetry (%) GENERAL: NAD, Awake, alert, and fully oriented . HEENT: NC/AT, EOMI, ARAM, sclera anicteric, MMM NECK: No lymphadenopathy, no thyromegaly or any thyroid nodules appreciated, no JVD LUNGS: CTA bilaterally. No wheezes, and no crackles. No accessory muscle use. HEART: Irregularly irregular rhythm with normal rate, normal S1 and S2 without murmur ABDOMEN: Soft, NT/ND, normoactive bowel sounds, no guarding EXTREMITIES: 2+ distal pulses, warm, well-perfused. No calf tenderness. No peripheral edema. PSYCHIATRIC: Cooperative. Good eye contact. Appropriate mood and affect. SKIN: Warm, dry, normal turgor, no rashes or lesions noted. Laboratory Results 12/15/18 12/15/18 12/15/18 13:52 13:52 13:52 WBC 6.0 RBC 4.91 Hgb 13.2 Hct 39.1 MCV 79.7 L MCH 26.9 MCHC 33.8 RDW 13.9 Plt Count 207 D MPV 9.2 Absolute Neuts (auto) 3.7 Neutrophils % 62.0 Lymphocytes % 29.7 D Monocytes % 6.2 Eosinophils % 1.9 Basophils % 0.2 Nucleated RBC % 0 PT with INR 12.40 INR 1.05 PTT (Actin FS) 35.4 Sodium 139 Potassium 3.1 L Chloride 103 Carbon Dioxide 29 Anion Gap 8 BUN 14.9 Creatinine 0.7 Est GFR (CKD-EPI)AfAm 115.45 Est GFR (CKD-EPI)NonAf 99.62 Random Glucose 109 H Calcium 9.5 Phosphorus Magnesium Total Bilirubin 0.5 AST 16 ALT 35 Alkaline Phosphatase 60 Creatine Kinase 32 Troponin I < 0.02 Total Protein 6.8 Albumin 3.8 TSH 0.01 L 12/15/18 13:52 WBC RBC Hgb Hct MCV MCH MCHC RDW Plt Count MPV Absolute Neuts (auto) Neutrophils % Lymphocytes % Monocytes % Eosinophils % Basophils % Nucleated RBC % PT with INR INR PTT (Actin FS) Sodium Potassium Chloride Carbon Dioxide Anion Gap BUN Creatinine Est GFR (CKD-EPI)AfAm Est GFR (CKD-EPI)NonAf Random Glucose Calcium Phosphorus 3.3 Magnesium 1.6 L Total Bilirubin AST ALT Alkaline Phosphatase Creatine Kinase Troponin I Total Protein Albumin TSH Active Medications Generic Name Dose Route Start Last Admin Trade Name Mariah PRN Reason Stop Dose Admin Enoxaparin Sodium 120 mg 12/15/18 22:00 12/15/18 21:01 Lovenox - SQ 120 mg BID KESHA Administration Diltiazem HCl 125 mg/ Dextrose 125 mls @ 10 mls/hr 12/15/18 19:00 12/15/18 18 :30 IVPB 10 mg/hr TITR KESHA 10 mls/hr Administration Protocol 10 MG/HR Pantoprazole Sodium 40 mg 12/15/18 15:45 12/15/18 16:12 Protonix - PO 40 mg DAILY KESHA Administration Potassium Chloride 40 meq 12/15/18 17:00 12/15/18 21:01 K-Dur - PO 12/16/18 10:01 40 meq BID KESHA Administration ASSESSMENT/PLAN: New onset atrial fibrillation with RVR HTN HypoMagnesemia Hypokalemia --Unclear etiology of atrial fibrillation onset --TSH noted to be low; ordered Free T4 for AM labs --If elevated would likely need f/u thyroid US and further investigative work on outpatient basis --Echocardiogram reviewed --Continue pt on Lovenox 120mg BID SQ and can transition to oral agents per cardiology and primary team --Continue Cardizem gtt for control of HR; will likely transition back to oral agents in AM --Given pt BP has become controlled while on Cardizem gtt will hold home antihypertensives for now FEN: Fluids: none indicated Electrolyte abnormalities: As above; already repleted per primary teams Nutrition: PPX: DVT - already on full dose AC GI - Already on home dose protonix Dispo: Continue monitoring and transition to oral agents; can transition to telemetry floor in AM Eric Durant DO - IM PGY-2 Visit type - Emergency Visit Emergency Visit: Yes ED Registration Date: 12/15/18 Care time: The patient presented to the Emergency Department on the above date and was hospitalized for further evaluation of their emergent condition. - New Patient This patient is new to me today: Yes Date on this admission: 12/16/18 - Critical Care Critical Care patient: Yes Total Critical Care Time (in minutes): 30 Critical Care Statement: The care of this patient involved high complexity decision making to prevent further life threatening deterioration of the patient 's condition and/or to evaluate & treat vital organ system(s) failure or risk of failure.
[2018-12-15] MEDS ORDERED: ENOXAPARIN NA (PORCINE) 120 MG/0.8 ML DISP.SYRIN SQ SCH (22:00)
[2018-12-15] MEDS ORDERED: POTASSIUM CHLORIDE TABS 20 MEQ TABLET.ER (FP) PO SCH (22:00)
[2018-12-16 06:13] LABS: MEAN PLT VOLUME 9.1 fl (7.5-11.1)
[2018-12-16 06:31] LABS: BASO % 0.3 % (0-2.0); EOS % 2.6 % (0-4.5); HEMATOCRIT 38.5 % (32.4-45.2); LYMPH % 38.5 % (8-40); MCH 27.1 pg (25.7-33.7); MCHC 33.6 g/dl (32.0-36.0); MEAN CELL VOLUME 80.6 fl (80-96); MONO % 7.5 % (3.8-10.2); NEUT % 51.1 % (42.8-82.8); PLATELET COUNT 198 K/MM3 (134-434); RBC 4.78 M/mm3 (3.60-5.2); WHITE BLOOD COUNT 5.2 K/mm3 (4.0-10.0)
[2018-12-16 06:43] LABS: ALBUMIN 3.4 g/dl (3.4-5.0); BILIRUBIN,TOTAL 0.5 mg/dL (0.2-1); BLOOD UREA NITROGEN 16.7 mg/dL (7-18); CALCIUM 9.1 mg/dL (8.5-10.1); CREATININE 0.6 mg/dL (0.55-1.3); POTASSIUM 4.2 mmol/L (3.5-5.1); TOT PROT 6.3 g/dl (6.4-8.2)
[2018-12-16] MEDS ORDERED: dilTIAZem HCL 60 MG TABLET (FP) PO ONE (06:44)
--- NOTE | 2018-12-16 08:34 | PN ---
Physical Exam: SUBJECTIVE: Patient seen and examined at bedside- patient converted to sinus rhythm at around 6:00am; she is no longer having any palpitations or chest pressure; she denies any CP/SOB/N/V fevers or chills OBJECTIVE: Vital Signs Period Temp Pulse Resp BP Sys/Curtis Pulse Ox Last 24 Hr 97.8 F-98.8 F 58-146 13-22 91-133/46-101 97-100 GENERAL: The patient is awake, alert, and fully oriented, in no acute distress. EYES: PEERLA: EOMI; no scleral icterus . NECK: no JVD; no lymphadenopathy LUNGS: CTA B/L; no rales, rhonchi or wheezing HEART: Regular rate and rhythm, S1, S2 without murmur, rub or gallop. ABDOMEN: Soft, nontender; nondistended +BS in all 4 quadrants EXTREMITIES: 2+ pulses, warm, well-perfused, no edema. PSYCH: Normal mood, normal affect. SKIN: Warm, dry, normal turgor, no rashes or lesions noted Laboratory Results - last 24 hr 12/15/18 12/15/18 12/15/18 13:52 13:52 13:52 WBC 6.0 RBC 4.91 Hgb 13.2 Hct 39.1 MCV 79.7 L MCH 26.9 MCHC 33.8 RDW 13.9 Plt Count 207 D MPV 9.2 Absolute Neuts (auto) 3.7 Neutrophils % 62.0 Lymphocytes % 29.7 D Monocytes % 6.2 Eosinophils % 1.9 Basophils % 0.2 Nucleated RBC % 0 PT with INR 12.40 INR 1.05 PTT (Actin FS) 35.4 Sodium 139 Potassium 3.1 L Chloride 103 Carbon Dioxide 29 Anion Gap 8 BUN 14.9 Creatinine 0.7 Est GFR (CKD-EPI)AfAm 115.45 Est GFR (CKD-EPI)NonAf 99.62 Random Glucose 109 H Hemoglobin A1c % Calcium 9.5 Phosphorus Magnesium Total Bilirubin 0.5 AST 16 ALT 35 Alkaline Phosphatase 60 Creatine Kinase 32 Troponin I < 0.02 Total Protein 6.8 Albumin 3.8 Triglycerides Cholesterol Total LDL Cholesterol HDL Cholesterol TSH 0.01 L Free T4 12/15/18 12/16/18 12/16/18 13:52 05:20 05:20 WBC 5.2 RBC 4.78 Hgb 13.0 Hct 38.5 MCV 80.6 MCH 27.1 MCHC 33.6 RDW 14.0 Plt Count 198 MPV 9.1 Absolute Neuts (auto) 2.6 Neutrophils % 51.1 Lymphocytes % 38.5 D Monocytes % 7.5 Eosinophils % 2.6 Basophils % 0.3 Nucleated RBC % 0 PT with INR INR PTT (Actin FS) Sodium 142 Potassium 4.2 Chloride 108 H Carbon Dioxide 28 Anion Gap 6 L BUN 16.7 Creatinine 0.6 Est GFR (CKD-EPI)AfAm 121.46 Est GFR (CKD-EPI)NonAf 104.80 Random Glucose 89 Hemoglobin A1c % Calcium 9.1 Phosphorus 3.3 Magnesium 1.6 L 2.0 Total Bilirubin 0.5 AST 14 L ALT 28 Alkaline Phosphatase 55 Creatine Kinase Troponin I Total Protein 6.3 L Albumin 3.4 Triglycerides 194 H Cholesterol 146 Total LDL Cholesterol 83 HDL Cholesterol 38 L TSH Free T4 1.55 H 12/16/18 05:20 WBC RBC Hgb Hct MCV MCH MCHC RDW Plt Count MPV Absolute Neuts (auto) Neutrophils % Lymphocytes % Monocytes % Eosinophils % Basophils % Nucleated RBC % PT with INR INR PTT (Actin FS) Sodium Potassium Chloride Carbon Dioxide Anion Gap BUN Creatinine Est GFR (CKD-EPI)AfAm Est GFR (CKD-EPI)NonAf Random Glucose Hemoglobin A1c % 5.5 Calcium Phosphorus Magnesium Total Bilirubin AST ALT Alkaline Phosphatase Creatine Kinase Troponin I Total Protein Albumin Triglycerides Cholesterol Total LDL Cholesterol HDL Cholesterol TSH Free T4 Active Medications Generic Name Dose Route Start Last Admin Trade Name Freq PRN Reason Stop Dose Admin Diltiazem HCl 60 mg 12/16/18 12:00 Cardizem - PO Q6HPO KESHA Enoxaparin Sodium 120 mg 12/15/18 22:00 12/15/18 21:01 Lovenox - SQ 120 mg BID KESHA Administration Pantoprazole Sodium 40 mg 12/15/18 15:45 12/15/18 16:12 Protonix - PO 40 mg DAILY KESHA Administration Potassium Chloride 40 meq 12/15/18 17:00 12/15/18 21:01 K-Dur - PO 12/16/18 10:01 40 meq BID KESHA Administration ASSESSMENT/PLAN: 53 y/o female with PMH of HTN. diastolic CHF presented to the ED with complaints of palpitations and chest pressure, found to be in new onset Afib with RVR #Cardiovascular patient found to be in new onset Afib with RVR and converted back to sinus @6am this morning -echo was done which was normal -cardiology on board; Dr. Jethro mello appreciated -c/w propanolol 10 q8h; given that patient has had history of junctional rhythm in past w/ cardizem -eliquis 5 BID -TSH found to be low and free t4 found to be high; endo consulted could be reason for afib -sleep screen ordered -cardiac monitoring -holding patients loop diuretics #Endocrinology patient found to have a TSH of 0.01 and Free T4 of 1.55 -could be the reason for her new onset afib with RVR -Dr. Pelaez consulted -patient was started on Methimazole 20 TID #Renal patient was hypokalemic on arrival -lytes were repleted an repeat this AM was normal -monitor BMP daily F/E/N not on fluids monitor electrolytes sodium controlled diet Problem List - Problems (1) Hyperthyroidism Code(s): E05.90 - THYROTOXICOSIS, UNSP WITHOUT THYROTOXIC CRISIS OR STORM (2) Atrial fibrillation with rapid ventricular response Code(s): I48.91 - UNSPECIFIED ATRIAL FIBRILLATION (3) Chest pressure Code(s): R07.89 - OTHER CHEST PAIN (4) Asthma Code(s): J45.909 - UNSPECIFIED ASTHMA, UNCOMPLICATED Visit type - Emergency Visit Emergency Visit: Yes ED Registration Date: 12/15/18 Care time: The patient presented to the Emergency Department on the above date and was hospitalized for further evaluation of their emergent condition. - New Patient This patient is new to me today: Yes Date on this admission: 12/16/18 - Critical Care Critical Care patient: Yes Total Critical Care Time (in minutes): 35 Critical Care Statement: The care of this patient involved high complexity decision making to prevent further life threatening deterioration of the patient 's condition and/or to evaluate & treat vital organ system(s) failure or risk of failure.
[2018-12-16] MEDS: APIXABAN 5 MG TABLET PO SCH ×2 (09:39→21:32)
[2018-12-16] MEDS: PANTOPRAZOLE 40 MG TABLET (FP) PO SCH (09:39)
[2018-12-16] MEDS: POTASSIUM CHLORIDE TABS 20 MEQ TABLET.ER (FP) PO SCH (09:39)
[2018-12-16] MEDS ORDERED: dilTIAZem HCL 30 MG TABLET (FP) PO SCH (10:00)
--- NOTE | 2018-12-16 10:30 | EKG ---
Test Reason : Blood Pressure : / mmHG Vent. Rate : 055 BPM Atrial Rate : 055 BPM P-R Int : 132 ms QRS Dur : 088 ms QT Int : 438 ms P-R-T Axes : 030 017 016 degrees QTc Int : 419 ms SINUS BRADYCARDIA OTHERWISE NORMAL ECG Confirmed by MD AMRITA, AMAN ([id number]) on 12/16/2018 10:30:16 AM Referred By: Confirmed By:AMAN CROWE MD
--- NOTE | 2018-12-16 10:33 | PN ---
Teaching Attending Note Name of Resident: Neda Bella ATTENDING PHYSICIAN STATEMENT I saw and evaluated the patient. I reviewed the resident's note and discussed the case with the resident. I agree with the resident's findings and plan as documented. SUBJECTIVE: Patient seen and examined in the ICU. Awake and alert. Converted to NSR around 6 AM. No CP or SOB. (+) Snoring, witnessed apneas by her , and Excessive Daytime Sleepiness (EDS). Intake & Output 12/13/18 12/14/18 12/15/18 12/16/18 23:59 23:59 23:59 23:59 Intake Total 472 130 Balance 472 130 Weight 291 lb 15.683 oz 296 lb 4 oz Last Vital Signs Temp Pulse Resp BP Pulse Ox 97.6 F 62 16 121/78 100 12/16/18 09:49 12/16/18 09:49 12/16/18 09:49 12/16/18 09:49 12/16/18 08:00 Active Medications Apixaban (Eliquis -) 5 mg PO BID [facility] Last Admin: 12/16/18 09:39 Dose: 5 mg Methimazole (Tapazole -) 20 mg PO TID KESHA Pantoprazole Sodium (Protonix -) 40 mg PO DAILY [facility] Last Admin: 12/16/18 09:39 Dose: 40 mg Propranolol HCl (Inderal -) 10 mg PO Q6HPO [facility] GENERAL: NAD, Awake, alert, and fully oriented . HEENT: NC/AT, EOMI, ARAM, sclera anicteric, MMM NECK: No lymphadenopathy, no thyromegaly or any thyroid nodules appreciated, no JVD LUNGS: CTA bilaterally. No wheezes, and no crackles. No accessory muscle use. HEART: S1S1 regular, No murmur ABDOMEN: Soft, NT/ND, normoactive bowel sounds, no guarding EXTREMITIES: 2+ distal pulses, warm, well-perfused. No calf tenderness. No peripheral edema. PSYCHIATRIC: Cooperative. Good eye contact. Appropriate mood and affect. SKIN: Warm, dry, normal turgor, no rashes or lesions noted. Laboratory Results - last 24 hr 12/15/18 12/15/18 12/15/18 13:52 13:52 13:52 WBC 6.0 RBC 4.91 Hgb 13.2 Hct 39.1 MCV 79.7 L MCH 26.9 MCHC 33.8 RDW 13.9 Plt Count 207 D MPV 9.2 Absolute Neuts (auto) 3.7 Neutrophils % 62.0 Lymphocytes % 29.7 D Monocytes % 6.2 Eosinophils % 1.9 Basophils % 0.2 Nucleated RBC % 0 PT with INR 12.40 INR 1.05 PTT (Actin FS) 35.4 Sodium 139 Potassium 3.1 L Chloride 103 Carbon Dioxide 29 Anion Gap 8 BUN 14.9 Creatinine 0.7 Est GFR (CKD-EPI)AfAm 115.45 Est GFR (CKD-EPI)NonAf 99.62 Random Glucose 109 H Hemoglobin A1c % Calcium 9.5 Phosphorus Magnesium Total Bilirubin 0.5 AST 16 ALT 35 Alkaline Phosphatase 60 Creatine Kinase 32 Troponin I < 0.02 Total Protein 6.8 Albumin 3.8 Triglycerides Cholesterol Total LDL Cholesterol HDL Cholesterol TSH 0.01 L Free T4 12/15/18 12/16/18 12/16/18 13:52 05:20 05:20 WBC 5.2 RBC 4.78 Hgb 13.0 Hct 38.5 MCV 80.6 MCH 27.1 MCHC 33.6 RDW 14.0 Plt Count 198 MPV 9.1 Absolute Neuts (auto) 2.6 Neutrophils % 51.1 Lymphocytes % 38.5 D Monocytes % 7.5 Eosinophils % 2.6 Basophils % 0.3 Nucleated RBC % 0 PT with INR INR PTT (Actin FS) Sodium 142 Potassium 4.2 Chloride 108 H Carbon Dioxide 28 Anion Gap 6 L BUN 16.7 Creatinine 0.6 Est GFR (CKD-EPI)AfAm 121.46 Est GFR (CKD-EPI)NonAf 104.80 Random Glucose 89 Hemoglobin A1c % Calcium 9.1 Phosphorus 3.3 Magnesium 1.6 L 2.0 Total Bilirubin 0.5 AST 14 L ALT 28 Alkaline Phosphatase 55 Creatine Kinase Troponin I Total Protein 6.3 L Albumin 3.4 Triglycerides 194 H Cholesterol 146 Total LDL Cholesterol 83 HDL Cholesterol 38 L TSH Free T4 1.55 H 12/16/18 05:20 WBC RBC Hgb Hct MCV MCH MCHC RDW Plt Count MPV Absolute Neuts (auto) Neutrophils % Lymphocytes % Monocytes % Eosinophils % Basophils % Nucleated RBC % PT with INR INR PTT (Actin FS) Sodium Potassium Chloride Carbon Dioxide Anion Gap BUN Creatinine Est GFR (CKD-EPI)AfAm Est GFR (CKD-EPI)NonAf Random Glucose Hemoglobin A1c % 5.5 Calcium Phosphorus Magnesium Total Bilirubin AST ALT Alkaline Phosphatase Creatine Kinase Troponin I Total Protein Albumin Triglycerides Cholesterol Total LDL Cholesterol HDL Cholesterol TSH Free T4 ASSESSMENT/PLAN: New onset atrial fibrillation with RVR HTN Asthma Probable Obstructive Sleep Apnea Syndrome HypoMagnesemia Hypokalemia D/W Cardiology: Trial of Propranolol Will need Sleep Apnea screen O2 as needed BD TX as needed AC with DOAC Thyroid work up Cardiac Telemetry monitoring Dr Harden
--- NOTE | 2018-12-16 11:49 | PN ---
Progress Note (short form) - Note Progress Note: patient seen and examined in ICU telemetry review - back to NSR 6 am reports feeling more comfortable - no CP or SOB Vital Signs Period Temp Pulse Resp BP Sys/Curtis Pulse Ox Last 24 Hr 97.6 F-98.8 F 58-146 13-22 91-133/46-101 97-100 neck supple ? thyroid fullness L heart S1/S2 2/6 S EM regular lungs clear bilat no wheezing abd obese ext no edema Laboratory Last Values WBC 5.2 K/mm3 (4.0-10.0) 12/16/18 05:20 RBC 4.78 M/mm3 (3.60-5.2) 12/16/18 05:20 Hgb 13.0 GM/dL (10.7-15.3) 12/16/18 05:20 Hct 38.5 % (32.4-45.2) 12/16/18 05:20 MCV 80.6 fl (80-96) 12/16/18 05:20 MCH 27.1 pg (25.7-33.7) 12/16/18 05:20 MCHC 33.6 g/dl (32.0-36.0) 12/16/18 05:20 RDW 14.0 % (11.6-15.6) 12/16/18 05:20 Plt Count 198 K/MM3 (134-434) 12/16/18 05:20 MPV 9.1 fl (7.5-11.1) 12/16/18 05:20 Absolute Neuts (auto) 2.6 K/mm3 (1.5-8.0) 12/16/18 05:20 Neutrophils % 51.1 % (42.8-82.8) 12/16/18 05:20 Lymphocytes % 38.5 % (8-40) D 12/16/18 05:20 Monocytes % 7.5 % (3.8-10.2) 12/16/18 05:20 Eosinophils % 2.6 % (0-4.5) 12/16/18 05:20 Basophils % 0.3 % (0-2.0) 12/16/18 05:20 Nucleated RBC % 0 % (0-0) 12/16/18 05:20 PT with INR 12.40 SEC (9.7-13.0) 12/15/18 13:52 INR 1.05 (0.83-1.09) 12/15/18 13:52 PTT (Actin FS) 35.4 SECONDS (25.2-36.5) 12/15/18 13:52 Sodium 142 mmol/L (136-145) 12/16/18 05:20 Potassium 4.2 mmol/L (3.5-5.1) 12/16/18 05:20 Chloride 108 mmol/L (98-107) H 12/16/18 05:20 Carbon Dioxide 28 mmol/L (21-32) 12/16/18 05:20 Anion Gap 6 MMOL/L (8-16) L 12/16/18 05:20 BUN 16.7 mg/dL (7-18) 12/16/18 05:20 Creatinine 0.6 mg/dL (0.55-1.3) 12/16/18 05:20 Est GFR (CKD-EPI)AfAm 121.46 12/16/18 05:20 Est GFR (CKD-EPI)NonAf 104.80 12/16/18 05:20 Random Glucose 89 mg/dL (74-106) 12/16/18 05:20 Hemoglobin A1c % 5.5 % (4.2-6.3) 12/16/18 05:20 Calcium 9.1 mg/dL (8.5-10.1) 12/16/18 05:20 Phosphorus 3.3 mg/dL (2.5-4.9) 12/15/18 13:52 Magnesium 2.0 mg/dL (1.8-2.4) 12/16/18 05:20 Total Bilirubin 0.5 mg/dL (0.2-1) 12/16/18 05:20 AST 14 U/L (15-37) L 12/16/18 05:20 ALT 28 U/L (13-61) 12/16/18 05:20 Alkaline Phosphatase 55 U/L (45-117) 12/16/18 05:20 Creatine Kinase 32 U/L (26-192) 12/15/18 13:52 Troponin I < 0.02 ng/ml (0.00-0.05) 12/15/18 13:52 Total Protein 6.3 g/dl (6.4-8.2) L 12/16/18 05:20 Albumin 3.4 g/dl (3.4-5.0) 12/16/18 05:20 Triglycerides 194 mg/dL (0-150) H 12/16/18 05:20 Cholesterol 146 mg/dL (50-200) 12/16/18 05:20 Total LDL Cholesterol 83 mg/dL (5-100) 12/16/18 05:20 HDL Cholesterol 38 mg/dL (40-60) L 12/16/18 05:20 TSH 0.01 uIU/ml (0.358-3.74) L 12/15/18 13:52 Free T4 1.55 ng/dl (0.76-1.46) H 12/16/18 05:20 Active Medications Apixaban (Eliquis -) 5 mg PO BID [facility] Last Admin: 12/16/18 09:39 Dose: 5 mg Methimazole (Tapazole -) 20 mg PO TID [facility] -- Pantoprazole Sodium (Protonix -) 40 mg PO DAILY [facility] Last Admin: 12/16/18 09:39 Dose: 40 mg Propranolol HCl (Inderal -) 10 mg PO Q6HPO KESHA given Cardizem earlier - now in NSR with bradycardia - inderal on hold Tapazole ordered but has not been given - assmt / plan # New onset atrial fibrillation with RVR rate control a/c eletrolyte corrected on admission ( hypokalemia / hypomag ) keep K > 4.2 and Mag > 2.0 morbid obesity ? sleep apnea Hyperthyroid - started on Tapazole Endocine consulted continue telemetry monitoring Cardiology appreciated # Asthma reports has not used rescue inhaler in months maintenance with symbicort asthma most commonly exacerbated during winter months # HTN adjust meds for rate control and BP # obesity Aic 5.5, however +family hx of DM recommend weight loss discussed options for weight management will benefit from Apnea screen
[2018-12-16] MEDS ORDERED: dilTIAZem HCL 60 MG TABLET (FP) PO SCH (12:00)
--- NOTE | 2018-12-16 12:18 | EKG ---
Test Reason : Blood Pressure : / mmHG Vent. Rate : 112 BPM Atrial Rate : 091 BPM P-R Int : 000 ms QRS Dur : 088 ms QT Int : 344 ms P-R-T Axes : 000 020 -02 degrees QTc Int : 469 ms ATRIAL FIBRILLATION WITH RAPID VENTRICULAR RESPONSE NONSPECIFIC ST ABNORMALITY ABNORMAL ECG Confirmed by MD AMRITA, AMAN ([id number]) on 12/16/2018 12:18:02 PM Referred By: Confirmed By:AMAN CROWE MD
--- NOTE | 2018-12-16 12:29 | PN ---
Progress Note, Physician Chief Complaint: Pt A&Ox3; sitting up at bedside; no palpitations/SOB/chest pain/dizziness. +Anxiety over her various health conditions. 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 States patient states that she was well this morning was otherwise asymptomatic after eating lunch she started feeling lightheaded, and some chest pressure so was brought to the ER for evaluation. 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 The patient denies any stimulant use, new medications. Upon arrival to the emergency department the patient was on a monitor her heart rate was in the 140s appeared to be irregularly irregular, cw afib. Her blood pressure was 140/68. She did endorse some chest pressure but was mentating well. The patient denies any abdominal pain, nausea, vomiting, back pain, headache, current lightheadedness, urinary bowel incontinence. - Current Medication List Current Medications: Active Medications Apixaban (Eliquis -) 5 mg PO BID [facility] Last Admin: 12/16/18 09:39 Dose: 5 mg Methimazole (Tapazole -) 20 mg PO TID [facility] Pantoprazole Sodium (Protonix -) 40 mg PO DAILY [facility] Last Admin: 12/16/18 09:39 Dose: 40 mg Propranolol HCl (Inderal -) 10 mg PO Q6HPO [facility] Last Admin: 12/16/18 12:00 Dose: Not Given - Objective Vital Signs: Vital Signs Temperature 97.6 F 12/16/18 09:49 Pulse Rate 64 12/16/18 12:00 Respiratory Rate 12/16/18 12:00 Blood Pressure 121/81 12/16/18 12:00 O2 Sat by Pulse Oximetry (%) 96 12/16/18 12:00 Constitutional: Yes: Anxious, Obese Eyes: Yes: WNL HENT: Yes: WNL Neck: Yes: WNL Cardiovascular: Yes: Regular Rate and Rhythm, S1, S2 Respiratory: Yes: WNL Gastrointestinal: Yes: Soft, Abdomen, Obese ...Rectal Exam: Yes: Deferred Genitourinary: No: Anuria Breast(s): Yes: WNL Musculoskeletal: Yes: WNL Extremities: Yes: WNL Edema: No Peripheral Pulses WNL: Yes Integumentary: Yes: WNL Neurological: Yes: WNL Labs: CBC, BMP 12/16/18 05:20 12/16/18 05:20 INR, PTT INR 1.05 (0.83-1.09) 12/15/18 13:52 Abnormal Lab Results 12/15/18 12/15/18 12/15/18 13:52 13:52 13:52 MCV 79.7 L Potassium 3.1 L Chloride Anion Gap Random Glucose 109 H Magnesium 1.6 L AST Total Protein Triglycerides HDL Cholesterol TSH 0.01 L Free T4 12/16/18 05:20 MCV Potassium Chloride 108 H Anion Gap 6 L Random Glucose Magnesium AST 14 L Total Protein 6.3 L Triglycerides 194 H HDL Cholesterol 38 L TSH Free T4 1.55 H - ....Imaging Chest X-ray: Image Reviewed (no acute pathology) EKG: Image Reviewed (elemetry: NSR; periods of sinus bradycardia) Problem List - Problems (1) HTN (hypertension) Assessment/Plan: Losartan and HCTZ were discontinued. To start propanolol 5 mg bid (PAF; HTN). F/u thyroid w/u. Sleep studies + for sleep apnea. Code(s): I10 - ESSENTIAL (PRIMARY) HYPERTENSION (2) Anxiety Code(s): F41.9 - ANXIETY DISORDER, UNSPECIFIED (3) Atrial fibrillation with rapid ventricular response Assessment/Plan: Pt has not recieved diltiazem in 48 hours. Recieved one dose of inderol 10 mg PO yesterday at about noon. Noted bradycardic to 30s bpm last ight; asymptomatic when awakened. Discussed pt with Dr. Ramírez, EP, Profound sinus bradycardia has occurred only when asleep. She may be continued on AV condution sae (propanolol 5 mg bid; increased as needef for HR control) Dr. Harden noted that the bradycardia is not related to sleep apnea; instead , tachycardia, particularly AF, is common with this condition. From a cardiac standpoint, pt may be discharged and followed as an outpatient. She will have an evaluation with Dr. Ramírez, chief of EP at [place]; will benefit from long-term monitoring. It is essential that treatment for sleep apnea be started as soon as possible. Code(s): I48.91 - UNSPECIFIED ATRIAL FIBRILLATION (4) Hyperthyroidism Assessment/Plan: F/u workup of very low TSH, elevated free Tr. ?steroid indeuced. On methimazole; received propanolol 10 mg yesterday; will send home on 5 mg bid (bradycardia to 30s bpm last night). Code(s): E05.90 - THYROTOXICOSIS, UNSP WITHOUT THYROTOXIC CRISIS OR STORM (5) Asthma Code(s): J45.909 - UNSPECIFIED ASTHMA, UNCOMPLICATED (6) Back pain Code(s): M54.9 - DORSALGIA, UNSPECIFIED Qualifiers: Back pain location: thoracic back pain Chronicity: acute Back pain laterality: right Qualified Code(s): M54.6 - Pain in thoracic spine (7) Bradycardia Code(s): R00.1 - BRADYCARDIA, UNSPECIFIED (8) Morbid obesity Assessment/Plan: Pt has lost 20+ lbs in the past 2 months by cutting out all junk foods and drinking lots of water. Code(s): E66.01 - MORBID (SEVERE) OBESITY DUE TO EXCESS CALORIES (9) Sleep apnea Assessment/Plan: Pt says she has never been tested for it, but says "I must have it". Sleep studies in the future. Code(s): G47.30 - SLEEP APNEA, UNSPECIFIED (10) Depression Assessment/Plan: Pt cryijng this morning. SHe says she had been "sailing through" the findings and treatments (AF; sleep apnea), but this morning she suddenly became scared about the implications of her conditions. She has had anxiety/depression in the past, and has considered medicatl/ psychological counseling. She has discussed this with her PMD and with me in the past. She takes benzodiazepine prn for back pain (?and for anxiety). Code(s): F32.9 - MAJOR DEPRESSIVE DISORDER, SINGLE EPISODE, UNSPECIFIED
[2018-12-16] MEDS ORDERED: METHIMAZOLE 10 MG TABLET (FP) PO SCH ×2 (14:00→16:30)
--- NOTE | 2018-12-16 14:02 | CONSULT ---
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 20-25 min prior to arrival in the ED). Unable to identity eliciting events. Denies associated SOB. Denies h/o of similar previous episodes. EKG was performed in the PACU, which revealed rapid a-fib with RVR. Pt denies h/o of a-fib. 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 Reports last stress echo three years ago was normal , but believes she has a h/o of diastolic dysfunction. In normal state of health recently. Denies change in medications. No h/o thyroid disorder. No recent change in wt. Has hot flashes recently. Had endometrial ablation in the past so not sure if menopausal. Her primary has done labs to determine this. - History Source History Provided By: Patient, Medical Record - Past Medical History Cardio/Vascular: Yes: HTN Pulmonary: Yes: Asthma. No: Bronchitis, Cancer, COPD, O2 Dependent, Pneumonia, Previously Intubated, Pulmonary Embolus, Pulmonary Fibrosis, Sleep Apnea, Other Hepatobiliary: Yes: Cholelithiasis ...: No - Alcohol/Substance Use Hx Alcohol Use: No - Smoking History Smoking history: Never smoked Have you smoked in the past 12 months: No Aproximately how many cigarettes per day: 0 Home Medications - Allergies Allergies/Adverse Reactions: Allergies Allergy/AdvReac Type Severity Reaction Status Date / Time No Known Drug Allergies Allergy Verified 12/15/18 13:44 - Home Medications Home Medications: Ambulatory Orders Hydrochlorothiazide 25 mg PO DAILY 09/03/15 Lisinopril [Zestril] 2.5 mg PO DAILY 11/25/17 Ranitidine HCl [Zantac] 150 mg PO DAILY 10/29/18 Meloxicam [Mobic] 15 mg PO ASDIR 12/15/18 Ranitidine [Zantac -] 150 mg PO DAILY 12/15/18 Family Disease History - Family Disease History Other Family History: Mother hypothyroid Review of Systems - Review of Systems Constitutional: reports: No Symptoms Eyes: reports: No Symptoms HENT: reports: No Symptoms Neck: reports: No Symptoms Cardiovascular: reports: No Symptoms Respiratory: reports: No Symptoms Gastrointestinal: reports: No Symptoms Genitourinary: reports: No Symptoms Musculoskeletal: reports: No Symptoms Neurological: reports: No Symptoms Psychiatric: reports: No Symptoms Physical Exam Vital Signs: Vital Signs Temperature 97.6 F 12/16/18 09:49 Pulse Rate 64 12/16/18 12:00 Respiratory Rate 19 12/16/18 12:00 Blood Pressure 121/81 12/16/18 12:00 O2 Sat by Pulse Oximetry (%) 96 12/16/18 12:00 Constitutional: Yes: No Distress, Calm Eyes: Yes: Conjunctiva Clear, EOM Intact HENT: Yes: Atraumatic, Normocephalic Neck: Yes: Supple, Trachea Midline Cardiovascular: Yes: Regular Rate and Rhythm Respiratory: Yes: Regular, CTA Bilaterally Gastrointestinal: Yes: Normal Bowel Sounds, Soft Musculoskeletal: Yes: WNL Extremities: Yes: WNL Edema: No Neurological: Yes: Alert, Oriented Labs: CBC, BMP 12/16/18 05:20 12/16/18 05:20 Problem List - Problems (1) Atrial fibrillation with rapid ventricular response Code(s): I48.91 - UNSPECIFIED ATRIAL FIBRILLATION (2) Hyperthyroidism Code(s): E05.90 - THYROTOXICOSIS, UNSP WITHOUT THYROTOXIC CRISIS OR STORM Assessment/Plan AP; New onset A fib: Sinus rhythm now Abnormal TFT: Sublclinical hyperthyroidism vs steroid effect TSH 0.01 FT4 1.55 Pt got steroid injection to back about 6 weeks ago and Medrol prior to that The suppressed TSH could be from steroids and the FT4 of 1.55 reported as high maybe secondary to calibration issue with the FT4 assay Repeat TSH with FT4 by dialysis and FT3, Total T4, TSI, TPO Methimazole 10mg stat and daily for now Will f/u
[2018-12-16] MEDS ORDERED: METHIMAZOLE 10 MG TABLET (FP) PO ONE (17:48)
[2018-12-17 06:06] LABS: HEMATOCRIT 36.6 % (32.4-45.2); HEMOGLOBIN 12.4 GM/dL (10.7-15.3); MCH 27.5 pg (25.7-33.7); MCHC 33.9 g/dl (32.0-36.0); PLATELET COUNT 212 K/MM3 (134-434); RBC 4.52 M/mm3 (3.60-5.2); RDW 13.9 % (11.6-15.6); WHITE BLOOD COUNT 5.6 K/mm3 (4.0-10.0)
[2018-12-17 06:49] LABS: BLOOD UREA NITROGEN 16.8 mg/dL (7-18); CREATININE 0.6 mg/dL (0.55-1.3); PHOSPHOROUS 5.1 mg/dL (2.5-4.9); POTASSIUM 4.3 mmol/L (3.5-5.1)
[2018-12-17] MEDS: METHIMAZOLE 10 MG TABLET (FP) PO SCH (09:30)
[2018-12-17] MEDS: APIXABAN 5 MG TABLET PO SCH ×2 (09:30→21:27)
[2018-12-17] MEDS: PANTOPRAZOLE 40 MG TABLET (FP) PO SCH (09:30)
[2018-12-17 10:47] VITALS: BMI 43.7
--- NOTE | 2018-12-17 11:27 | PN ---
Teaching Attending Note Name of Resident: Darshan Paulino ATTENDING PHYSICIAN STATEMENT I saw and evaluated the patient. I reviewed the resident's note and discussed the case with the resident. I agree with the resident's findings and plan as documented. SUBJECTIVE: Pt seen and examined in the ICU. Converted to sinus rhythm. No shortness of breath or chest pain. Sleep screen strongly positive. OBJECTIVE: Vital Signs Period Temp Pulse Resp BP Sys/Curtis Pulse Ox Last 24 Hr 97.7 F-97.8 F 52-81 16-24 95-121/49-99 96-96 Intake & Output 12/14/18 12/15/18 12/16/18 12/17/18 23:59 23:59 23:59 23:59 Intake Total 472 1290 0 Balance 472 1290 0 Weight 132.44 kg 134.377 kg 134.263 kg Gen: NAD at rest Heart: RRR Lung: decreased breath sounds at the bases Abd: soft, nontender Ext: no edema CBC, BMP 12/17/18 05:15 12/17/18 05:15 Active Medications Apixaban (Eliquis -) 5 mg PO BID [facility] Last Admin: 12/17/18 09:30 Dose: 5 mg Methimazole (Tapazole -) 10 mg PO DAILY [facility] Last Admin: 12/17/18 09:30 Dose: Not Given Pantoprazole Sodium (Protonix -) 40 mg PO DAILY [facility] Last Admin: 12/17/18 09:30 Dose: 40 mg Propranolol HCl (Inderal -) 10 mg PO Q6HPO [facility] Last Admin: 12/17/18 00:38 Dose: Not Given ASSESSMENT AND PLAN: Paroxysmal Atrial Fibrillation now in sinus HTN Asthma Suspect Obstructive Sleep Apnea Syndrome - rate control - continue anticoagulation - tapazole per endocrinology - will need formal NPSG and CPAP titration study - can monitor on telemetry or d/c home
--- NOTE | 2018-12-17 11:44 | PN ---
Physical Exam: SUBJECTIVE: Patient seen and examined at bedside. Pt has been bradycardic overnight. No other events. Pt is comfortable with no complaints. OBJECTIVE: Vital Signs Period Temp Pulse Resp BP Sys/Curtis Pulse Ox Last 24 Hr 97.7 F-97.8 F 52-81 16-24 95-121/49-99 96-96 Gen: Comfortable, nad, aaox3 HEENT: NCAT, eomi Neck: supple, no jvd Cardio: rrr, normal s1s2, no mrg noted Pulm: cta b/l no rales/ronchi Abd: obese, nondistended, nontender Ext: no edema, 2+ pulses Laboratory Results - last 24 hr 12/17/18 12/17/18 05:15 05:15 WBC 5.6 RBC 4.52 Hgb 12.4 Hct 36.6 MCV 81.0 MCH 27.5 MCHC 33.9 RDW 13.9 Plt Count 212 MPV 9.0 Sodium 141 Potassium 4.3 Chloride 107 Carbon Dioxide 30 Anion Gap 3 L BUN 16.8 Creatinine 0.6 Est GFR (CKD-EPI)AfAm 121.46 Est GFR (CKD-EPI)NonAf 104.80 Random Glucose 101 Calcium 9.0 Phosphorus 5.1 H Magnesium 2.0 TSH 0.01 L Active Medications Generic Name Dose Route Start Last Admin Trade Name Freq PRN Reason Stop Dose Admin Apixaban 5 mg 12/16/18 10:00 12/17/18 09:30 Eliquis - PO 5 mg BID KESHA Administration Methimazole 10 mg 12/17/18 10:00 12/17/18 09:30 Tapazole - PO Not Given DAILY KESHA Pantoprazole Sodium 40 mg 12/15/18 15:45 12/17/18 09:30 Protonix - PO 40 mg DAILY KESHA Administration Propranolol HCl 10 mg 12/16/18 10:15 12/17/18 00:38 Inderal - PO Not Given Q6HPO KESHA ASSESSMENT/PLAN: Pt is a 53 y/o F with PMH HTN, diastolic CHF, junctional rhythm remotely in the past who presented to hospital with complaint of palpitations and coughing, which she gets when she has PVCs (she's had extensive workup in the past and found to have frequent PVCs). #Afib 2/2 likely JENNIFER -Pt was found to be in AF with RVR -Now back in sinus -will need to go on beta sae -c/w propranolol as HR -on eliquis bid #Sleep apnea -Sleep screen positive -will need formal sleep study as outpt #? hyperthyroid -TSH suppressed -Per endocrine, could be 2/2 suppression by steroids pt received recently -T4, T3 studies pending -holding methimazole at this time Darshan Paulino MD PGY-2 ICU Visit type - Emergency Visit Emergency Visit: No - New Patient This patient is new to me today: No - Critical Care Critical Care patient: Yes Total Critical Care Time (in minutes): 45 Critical Care Statement: The care of this patient involved high complexity decision making to prevent further life threatening deterioration of the patient 's condition and/or to evaluate & treat vital organ system(s) failure or risk of failure.
--- NOTE | 2018-12-17 12:21 | PN ---
Progress Note, Physician History of Present Illness: 53y F hypertension, ?diastolic failure?, Presents with sudden onset of palpitations, chest pressure that started approximately 20 minutes prior to presentation. States patient states that she was well this morning was otherwise asymptomatic after eating lunch she started feeling lightheaded, and some chest pressure so was brought to the ER for evaluation. 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 The patient denies any stimulant use, new medications. Upon arrival to the emergency department the patient was on a monitor her heart rate was in the 140s appeared to be irregularly irregular, cw afib. Her blood pressure was 140/68. She did endorse some chest pressure but was mentating well. The patient denies any abdominal pain, nausea, vomiting, back pain, headache, current lightheadedness, urinary bowel incontinence. 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 never smoked previously drank socially but now doesn't drink at all - Current Medication List Current Medications: Active Medications Apixaban (Eliquis -) 5 mg PO BID [facility] Last Admin: 12/17/18 09:30 Dose: 5 mg Methimazole (Tapazole -) 10 mg PO DAILY [facility] Last Admin: 12/17/18 09:30 Dose: Not Given Pantoprazole Sodium (Protonix -) 40 mg PO DAILY [facility] Last Admin: 12/17/18 09:30 Dose: 40 mg Propranolol HCl (Inderal -) 10 mg PO Q6HPO [facility] Last Admin: 12/17/18 00:38 Dose: Not Given - Objective Vital Signs: Vital Signs Temperature 97.8 F 12/17/18 10:00 Pulse Rate 71 12/17/18 10:00 Respiratory Rate 24 H 12/17/18 10:00 Blood Pressure 119/99 12/17/18 10:00 O2 Sat by Pulse Oximetry (%) 96 12/17/18 07:44 Eyes: Yes: WNL, Conjunctiva Clear, EOM Intact HENT: Yes: WNL, Atraumatic, Normocephalic Neck: Yes: WNL, Supple, Trachea Midline Cardiovascular: Yes: WNL, Regular Rate and Rhythm Respiratory: Yes: WNL, Regular, CTA Bilaterally Gastrointestinal: Yes: WNL, Normal Bowel Sounds Genitourinary: Yes: WNL Musculoskeletal: Yes: WNL Extremities: Yes: WNL Edema: No Integumentary: Yes: WNL Neurological: Yes: WNL, Alert, Oriented ...Motor Strength: WNL Psychiatric: Yes: WNL Labs: CBC, BMP 12/17/18 05:15 12/17/18 05:15 INR, PTT INR 1.05 (0.83-1.09) 12/15/18 13:52 Problem List - Problems (1) Abnormal resting ECG findings Code(s): R94.31 - ABNORMAL ELECTROCARDIOGRAM [ECG] [EKG] (2) Asthma Code(s): J45.909 - UNSPECIFIED ASTHMA, UNCOMPLICATED (3) Back pain Code(s): M54.9 - DORSALGIA, UNSPECIFIED Qualifiers: Back pain location: thoracic back pain Chronicity: acute Back pain laterality: right Qualified Code(s): M54.6 - Pain in thoracic spine (4) Bradycardia Code(s): R00.1 - BRADYCARDIA, UNSPECIFIED (5) Cholecystitis, acute Code(s): K81.0 - ACUTE CHOLECYSTITIS (6) Contusion Code(s): T14.8XXA - OTHER INJURY OF UNSPECIFIED BODY REGION, INITIAL ENCOUNTER Qualifiers: Encounter type: initial encounter Contusion area: upper arm Laterality: right Qualified Code(s): S40.021A - Contusion of right upper arm, initial encounter (7) Dizziness Code(s): R42 - DIZZINESS AND GIDDINESS (8) Fall (on) (from) other stairs and steps, initial encounter Code(s): W10.8XXA - FALL (ON) (FROM) OTHER STAIRS AND STEPS, INITIAL ENCOUNTER (9) Headache Code(s): R51 - HEADACHE Qualifiers: Headache type: unspecified Headache chronicity pattern: unspecified pattern Intractability: not intractable Qualified Code(s): R51 - Headache (10) Morbid obesity Code(s): E66.01 - MORBID (SEVERE) OBESITY DUE TO EXCESS CALORIES (11) Right lower lobe pneumonia Code(s): J18.9 - PNEUMONIA, UNSPECIFIED ORGANISM Qualifiers: Pneumonia type: due to unspecified organism Qualified Code(s): J18.1 - Lobar pneumonia, unspecified organism Assessment/Plan - Problems (1) HTN (hypertension) Code(s): I10 - ESSENTIAL (PRIMARY) HYPERTENSION (2) Anxiety Code(s): F41.9 - ANXIETY DISORDER, UNSPECIFIED (3) Atrial fibrillation with rapid ventricular response Assessment/Plan: Pt converted from AF to NSR at about 6 am today. On diltiazem; canged to CD for easier compliance, better 24 hour coverage. Planned to start propanolol for hyperthyroidism bu held due to hx of ?slow junctional rhythm years ago when given propanolol for ?palpitations, requireing discontinuation (pt also has hx asthma, though it is felt from cigar head perforator's input that pt can tolerate beta blockers). F/u evaluation of possible thyroid disorder. Code(s): I48.91 - UNSPECIFIED ATRIAL FIBRILLATION (4) Hyperthyroidism Assessment/Plan: F/u workup of very low TSH, elevated free Tr. Code(s): E05.90 - THYROTOXICOSIS, UNSP WITHOUT THYROTOXIC CRISIS OR STORM (5) Asthma Code(s): J45.909 - UNSPECIFIED ASTHMA, UNCOMPLICATED (6) Back pain Code(s): M54.9 - DORSALGIA, UNSPECIFIED Qualifiers: Back pain location: thoracic back pain Chronicity: acute Back pain laterality: right Qualified Code(s): M54.6 - Pain in thoracic spine (7) Bradycardia Code(s): R00.1 - BRADYCARDIA, UNSPECIFIED (8) Morbid obesity Assessment/Plan: Pt has lost 20+ lbs in the past 2 months by cutting out all junk foods and drinking lots of water. Code(s): E66.01 - MORBID (SEVERE) OBESITY DUE TO EXCESS CALORIES (9) Sleep apnea Assessment/Plan: Pt says she has never been tested for it, but says "I must have it". Sleep studies in the future. Code(s): G47.30 - SLEEP APNEA, UNSPECIFIED cc time spent 36 min
--- NOTE | 2018-12-17 17:49 | PN ---
Progress Note (short form) - Note Progress Note: Eager to go home No complaints Vital Signs Period Temp Pulse Resp BP Sys/Curtis Pulse Ox Last 24 Hr 97.8 F-97.8 F 52-81 16-24 95-120/49-99 96-96 PE: AOx3 Neck: supple, No JVD, No TN, No Bruit HEENT: EOMI Lungs: CTA CVS: S1S2 Abd: Benign EXt: No edema Neuro: No focal deficit CMP Sodium 141 mmol/L (136-145) 12/17/18 05:15 Potassium 4.3 mmol/L (3.5-5.1) 12/17/18 05:15 Chloride 107 mmol/L (98-107) 12/17/18 05:15 Carbon Dioxide 30 mmol/L (21-32) 12/17/18 05:15 Anion Gap 3 MMOL/L (8-16) L 12/17/18 05:15 BUN 16.8 mg/dL (7-18) 12/17/18 05:15 Creatinine 0.6 mg/dL (0.55-1.3) 12/17/18 05:15 Est GFR (CKD-EPI)AfAm 121.46 12/17/18 05:15 Est GFR (CKD-EPI)NonAf 104.80 12/17/18 05:15 Random Glucose 101 mg/dL (74-106) 12/17/18 05:15 Hemoglobin A1c % 5.5 % (4.2-6.3) 12/16/18 05:20 Calcium 9.0 mg/dL (8.5-10.1) 12/17/18 05:15 Phosphorus 5.1 mg/dL (2.5-4.9) H 12/17/18 05:15 Magnesium 2.0 mg/dL (1.8-2.4) 12/17/18 05:15 Total Bilirubin 0.5 mg/dL (0.2-1) 12/16/18 05:20 AST 14 U/L (15-37) L 12/16/18 05:20 ALT 28 U/L (13-61) 12/16/18 05:20 Alkaline Phosphatase 55 U/L (45-117) 12/16/18 05:20 Creatine Kinase 32 U/L (26-192) 12/15/18 13:52 Troponin I < 0.02 ng/ml (0.00-0.05) 12/15/18 13:52 Total Protein 6.3 g/dl (6.4-8.2) L 12/16/18 05:20 Albumin 3.4 g/dl (3.4-5.0) 12/16/18 05:20 Triglycerides 194 mg/dL (0-150) H 12/16/18 05:20 Cholesterol 146 mg/dL (50-200) 12/16/18 05:20 Total LDL Cholesterol 83 mg/dL (5-100) 12/16/18 05:20 HDL Cholesterol 38 mg/dL (40-60) L 12/16/18 05:20 TSH 0.01 uIU/ml (0.358-3.74) L 12/17/18 05:15 Free T4 1.55 ng/dl (0.76-1.46) H 12/16/18 05:20 Current Medications Generic Name Dose Route Start Last Admin Trade Name Freq PRN Reason Stop Dose Admin Apixaban 5 mg 12/16/18 10:00 12/17/18 09:30 Eliquis - PO 5 mg BID KESHA Administration Methimazole 10 mg 12/17/18 10:00 12/17/18 09:30 Tapazole - PO Not Given DAILY [facility] Metoprolol Tartrate 12.5 mg 12/18/18 10:00 Lopressor - PO DAILY [facility] Pantoprazole Sodium 40 mg 12/15/18 15:45 12/17/18 09:30 Protonix - PO 40 mg DAILY [facility] Administration AP; New onset A fib: Sinus rhythm now Abnormal TFT: Sublclinical hyperthyroidism vs steroid effect Rpt TSH 0.01 FT4 by dialysis pending. TPO, TSI pending. FT4 1.55 Pt got steroid injection to back about 6 weeks ago and Medrol prior to that The suppressed TSH could be from steroids and the FT4 of 1.55 reported as high maybe secondary to calibration issue with the FT4 assay Repeat TSH with FT4 by dialysis and FT3, Total T4, TSI, TPO Methimazole 10mg daily for now F/U in office one week. Will f/u Problem List - Problems (1) Atrial fibrillation with rapid ventricular response Code(s): I48.91 - UNSPECIFIED ATRIAL FIBRILLATION (2) Hyperthyroidism Code(s): E05.90 - THYROTOXICOSIS, UNSP WITHOUT THYROTOXIC CRISIS OR STORM
--- NOTE | 2018-12-18 00:08 | PN ---
Progress Note (short form) - Note Progress Note: patient seen and examined in ICU telemetry review - remains on NSR given INDERAL earlier in the day she became +symptomatic and hypotensive -now D/ C wants to go home Vital Signs Period Temp Pulse Resp BP Sys/Curtis Pulse Ox Last 24 Hr 97.8 F-98.2 F 52-81 16-24 95-120/49-99 96-97 neck supple ? thyroid fullness L heart S1/S2 2/6 S EM regular lungs clear bilat no wheezing abd obese ext no edema CBC, BMP 12/17/18 05:15 12/17/18 05:15 TSH 0.01 ( repeat) Mag 2.0 Active Medications Apixaban (Eliquis -) 5 mg PO BID [facility] Last Admin: 12/17/18 21:27 Dose: 5 mg Methimazole (Tapazole -) 10 mg PO DAILY [facility] Last Admin: 12/17/18 09:30 Dose: Not Given Metoprolol Tartrate (Lopressor -) 12.5 mg PO DAILY [facility] Pantoprazole Sodium (Protonix -) 40 mg PO DAILY [facility] Last Admin: 12/17/18 09:30 Dose: 40 mg assmt / plan # New onset atrial fibrillation with RVR rate control a/c eletrolyte corrected on admission ( hypokalemia / hypomag ) keep K > 4.2 and Mag > 2.0 morbid obesity - screen ++ sleep apnea Hyperthyroid - started on Tapazole Endocine consulted continue telemetry monitoring to discuss with cardiology medical management # Asthma reports has not used rescue inhaler in months maintenance with symbicort asthma most commonly exacerbated during winter months BB with caution due to asthma # HTN adjust meds for rate control and BP # obesity Aic 5.5, however +family hx of DM recommend weight loss discussed options for weight management will benefit from Apnea screen # Hypothyroid tapazole to contineu on d/c follow up with endocrine 1 week post d/c # Sleep apnea screen during hospital stay + will have formal testing / bipap fitting as out patient patient understands and agrees with POC
[2018-12-18 06:06] LABS: BASO % 0.3 % (0-2.0); EOS % 4.1 % (0-4.5); HEMATOCRIT 36.9 % (32.4-45.2); HEMOGLOBIN 12.4 GM/dL (10.7-15.3); LYMPH % 28.7 % (8-40); MCHC 33.6 g/dl (32.0-36.0); MEAN CELL VOLUME 80.2 fl (80-96); MEAN PLT VOLUME 9.1 fl (7.5-11.1); MONO % 5.6 % (3.8-10.2); NEUT % 61.3 % (42.8-82.8); PLATELET COUNT 206 K/MM3 (134-434); WHITE BLOOD COUNT 5.7 K/mm3 (4.0-10.0)
[2018-12-18 06:34] LABS: ALBUMIN 3.3 g/dl (3.4-5.0); BILIRUBIN,TOTAL 0.3 mg/dL (0.2-1); BLOOD UREA NITROGEN 17.6 mg/dL (7-18); CREATININE 0.6 mg/dL (0.55-1.3); MAGNESIUM 2.1 mg/dL (1.8-2.4); POTASSIUM 4.2 mmol/L (3.5-5.1)
--- NOTE | 2018-12-18 08:37 | PN ---
Physical Exam: SUBJECTIVE: Patient seen and examined at bedside- patients HR went down to the 30's last night while she was sleeping though pateint was asymptomatic- patient is very eager to go home- she has remained in sinus rhythm , she denies having any more chest pain/palpitations or pressure OBJECTIVE: Vital Signs Period Temp Pulse Resp BP Sys/Curtis Pulse Ox Last 24 Hr 97.7 F-98.2 F 59-71 16-24 99-124/59-99 97 GENERAL: The patient is awake, alert, and fully oriented, in no acute distress. EYES: PEERLA: EOMI no scleral icterus NECK: no JVD; no lymphadenopathy LUNGS: CTA B/L; no rales, rhonchi or wheezing . HEART: Regular rate and rhythm, S1, S2 without murmur, rub or gallop. ABDOMEN: Soft, nontender, nondistended, normoactive bowel sounds, no guarding, no rebound, no hepatosplenomegaly, no masses. EXTREMITIES: 2+ pulses, warm, well-perfused, no edema. PSYCH: Normal mood, normal affect. SKIN: Warm, dry, normal turgor, no rashes or lesions noted Laboratory Results - last 24 hr 12/17/18 12/18/18 12/18/18 05:15 05:15 05:15 WBC 5.7 RBC 4.60 Hgb 12.4 Hct 36.9 MCV 80.2 MCH 27.0 MCHC 33.6 RDW 14.0 Plt Count 206 MPV 9.1 Absolute Neuts (auto) 3.5 Neutrophils % 61.3 Lymphocytes % 28.7 D Monocytes % 5.6 Eosinophils % 4.1 Basophils % 0.3 Nucleated RBC % 0 Sodium 143 Potassium 4.2 Chloride 111 H Carbon Dioxide 28 Anion Gap 4 L BUN 17.6 Creatinine 0.6 Est GFR (CKD-EPI)AfAm 121.46 Est GFR (CKD-EPI)NonAf 104.80 Random Glucose 90 Calcium 9.0 Magnesium 2.1 Total Bilirubin 0.3 AST 7 L ALT 24 Alkaline Phosphatase 54 Total Protein 6.0 L Albumin 3.3 L Free T3 4.3 Thyroid Peroxidase Ab 123 H Active Medications Generic Name Dose Route Start Last Admin Trade Name Freq PRN Reason Stop Dose Admin Apixaban 5 mg 12/16/18 10:00 12/17/18 21:27 Eliquis - PO 5 mg BID KESHA Administration Methimazole 10 mg 12/17/18 10:00 12/17/18 09:30 Tapazole - PO Not Given DAILY [facility] Metoprolol Tartrate 12.5 mg 12/18/18 10:00 Lopressor - PO DAILY [facility] Pantoprazole Sodium 40 mg 12/15/18 15:45 12/17/18 09:30 Protonix - PO 40 mg DAILY [facility] Administration ASSESSMENT/PLAN: 53 y/o female with PMH of HTN. diastolic CHF presented to the ED with complaints of palpitations and chest pressure, found to be in new onset Afib with RVR #Cardiovascular patient found to be in new onset Afib with RVR and is now back in sinus -echo was done which was normal -cardiology on board; Dr. Jethro mello appreciated- he would ;like to send her to an info specialist -patient to get propanolol 5mg BID -eliquis 5 BID -TSH found to be low and free t4 found to be high; endo consulted could be reason for afib -sleep screen done- positive; ( could also be the reason for new onset AFib) will need formal study done outpatient and probable BIPAP to be used at night -holding patients loop diuretics #Endocrinology patient found to have a TSH of 0.01 and Free T4 of 1.55 TPO elevated at 123 -Dr. Pelaez consulted -patient to c/w mathimazole 10 daily and to f/u with dr. fenton within one week F/E/N not on fluids monitor electrolytes sodium controlled diet dispo; can be d/c home Problem List - Problems (1) Hyperthyroidism Code(s): E05.90 - THYROTOXICOSIS, UNSP WITHOUT THYROTOXIC CRISIS OR STORM (2) Atrial fibrillation with rapid ventricular response Code(s): I48.91 - UNSPECIFIED ATRIAL FIBRILLATION (3) Chest pressure Code(s): R07.89 - OTHER CHEST PAIN (4) Asthma Code(s): J45.909 - UNSPECIFIED ASTHMA, UNCOMPLICATED Visit type - Emergency Visit Emergency Visit: Yes ED Registration Date: 12/15/18 Care time: The patient presented to the Emergency Department on the above date and was hospitalized for further evaluation of their emergent condition. - New Patient This patient is new to me today: No - Critical Care Critical Care patient: Yes Total Critical Care Time (in minutes): 35 Critical Care Statement: The care of this patient involved high complexity decision making to prevent further life threatening deterioration of the patient 's condition and/or to evaluate & treat vital organ system(s) failure or risk of failure.
[2018-12-18] MEDS ORDERED: PT OWN MED DRAWER 7, Y5N ONE (08:44)
[2018-12-18] MEDS: APIXABAN 5 MG TABLET PO SCH (09:36)
[2018-12-18] MEDS: METHIMAZOLE 10 MG TABLET (FP) PO SCH (09:37)
[2018-12-18] MEDS: PANTOPRAZOLE 40 MG TABLET (FP) PO SCH (09:37)
[2018-12-18] MEDS ORDERED: METOPROLOL TARTRATE 25 MG TABLET (FP) PO SCH (10:00)
--- NOTE | 2018-12-18 12:08 | PN ---
Teaching Attending Note Name of Resident: Neda Bella ATTENDING PHYSICIAN STATEMENT I saw and evaluated the patient. I reviewed the resident's note and discussed the case with the resident. I agree with the resident's findings and plan as documented. SUBJECTIVE: Patient seen and examined in the ICU. Remains in NSR. No CP or SOB. Noted bradycardia overnight, was asymptomatic. Portable sleep Apnea testing: RDI was very severely elevated @ 88 events per hour. She does have positive history or snoring, witnessed apneas, and Excessive Daytime Sleepiness (EDS). OBJECTIVE: Intake & Output 12/15/18 12/16/18 12/17/18 12/18/18 23:59 23:59 23:59 23:59 Intake Total 472 1290 300 Balance 472 1290 300 Weight 291 lb 15.683 oz 296 lb 4 oz 296 lb Last Vital Signs Temp Pulse Resp BP Pulse Ox 98.1 F 69 21 H 109/91 97 12/18/18 10:00 12/18/18 10:00 12/18/18 10:00 12/18/18 10:00 12/18/18 09:00 Active Medications Apixaban (Eliquis -) 5 mg PO BID [facility] Last Admin: 12/18/18 09:36 Dose: 5 mg Methimazole (Tapazole -) 10 mg PO DAILY [facility] Last Admin: 12/18/18 09:37 Dose: 10 mg Pantoprazole Sodium (Protonix -) 40 mg PO DAILY [facility] Last Admin: 12/18/18 09:37 Dose: 40 mg Propranolol HCl (Inderal -) 5 mg PO BID [facility] Gen: NAD at rest Heart: RRR Lung: decreased breath sounds at the bases Abd: soft, nontender Ext: no edema Laboratory Results - last 24 hr 12/17/18 12/18/18 12/18/18 05:15 05:15 05:15 WBC 5.7 RBC 4.60 Hgb 12.4 Hct 36.9 MCV 80.2 MCH 27.0 MCHC 33.6 RDW 14.0 Plt Count 206 MPV 9.1 Absolute Neuts (auto) 3.5 Neutrophils % 61.3 Lymphocytes % 28.7 D Monocytes % 5.6 Eosinophils % 4.1 Basophils % 0.3 Nucleated RBC % 0 Sodium 143 Potassium 4.2 Chloride 111 H Carbon Dioxide 28 Anion Gap 4 L BUN 17.6 Creatinine 0.6 Est GFR (CKD-EPI)AfAm 121.46 Est GFR (CKD-EPI)NonAf 104.80 Random Glucose 90 Calcium 9.0 Magnesium 2.1 Total Bilirubin 0.3 AST 7 L ALT 24 Alkaline Phosphatase 54 Total Protein 6.0 L Albumin 3.3 L Free T3 4.3 Thyroid Peroxidase Ab 123 H ASSESSMENT AND PLAN: Paroxysmal Atrial Fibrillation now in NSR HTN Asthma Severe Obstructive Sleep Apnea Syndrome: RDI 88 events per hour - Will attempt to set up patient with Auto-PAP - rate control per Cardiology - Continue anticoagulation - Tapazole per endocrinology - Will need formal [facility] follow up after discharge as this is directly impacting her Cardiac status Dr Harden
--- NOTE | 2018-12-18 12:51 | DS ---
Physical Examination Vital Signs: Vital Signs Temperature 98.1 F 12/18/18 10:00 Pulse Rate 73 12/18/18 12:00 Respiratory Rate 21 H 12/18/18 12:00 Blood Pressure 120/80 12/18/18 12:00 O2 Sat by Pulse Oximetry (%) 97 12/18/18 09:00 Constitutional: Yes: Well Nourished, No Distress, Calm Eyes: Yes: WNL, Conjunctiva Clear, EOM Intact HENT: Yes: WNL, Atraumatic, Normocephalic Neck: Yes: WNL, Supple, Trachea Midline Cardiovascular: Yes: Regular Rate and Rhythm, Bradycardia Respiratory: Yes: Regular, CTA Bilaterally Gastrointestinal: Yes: Normal Bowel Sounds, Soft, Abdomen, Obese ...Rectal Exam: Yes: Deferred Renal/: Yes: WNL Musculoskeletal: Yes: WNL Extremities: Yes: WNL Edema: No Peripheral Pulses WNL: Yes Integumentary: Yes: WNL Neurological: Yes: Alert, Oriented ...Motor Strength: WNL Psychiatric: Yes: Alert, Oriented Labs: CBC, BMP 12/18/18 05:15 12/18/18 05:15 Discharge Summary Reason For Visit: DIZZINESS SENSATION OF CHEST PRESSURE AFIB Current Active Problems Anxiety (Acute) Atrial fibrillation with rapid ventricular response (Acute) Chest pressure (Acute) Depression (Acute) Dizziness (Acute) HTN (hypertension) (Acute) Hyperthyroidism (Acute) Sleep apnea (Acute) Hospital Course: 53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 PMHX includes morbid obesity, HTN, and Asthma. Found to have paroxysmal afib, Hyperthyroidism and Severe Obstructive sleep apnea. Condition: Good - Instructions Diet, Activity, Other Instructions: 2 gm Na diet Referrals: Laci Gilbert MD [Primary Care Provider] - Disposition: HOME - Home Medications Comprehensive Discharge Medication List: Ambulatory Orders Hydrochlorothiazide 25 mg PO DAILY 09/03/15 Lisinopril [Zestril] 2.5 mg PO DAILY 11/25/17 Ranitidine HCl [Zantac] 150 mg PO DAILY 10/29/18 Meloxicam [Mobic] 15 mg PO ASDIR 12/15/18 Ranitidine [Zantac -] 150 mg PO DAILY 12/15/18
[2018-12-18 14:54] VITALS: TEMP 98
[2018-12-18 18:35] VITALS: BP 107/73; PULSE 70
[2018-12-19 06:09] LABS: THYROID STIM IMMUNOGLOBULIN 1.01 IU/L (0.00-0.55)
== END 2018-12-18 16:08 | disposition home or self-care (01) | DRG 310 ==
LOC: JER 13:32 → JERBED 14:31 → J2W 17:08 → JICU 18:58
PROVIDERS: ADMIT Family Medicine; ATTEND Family Medicine
DX: I48.0 Paroxysmal atrial fibrillation (principal); E66.01 Morbid (severe) obesity due to excess calories; I10 Essential (primary) hypertension; J45.20 Mild intermittent asthma, uncomplicated; E83.42 Hypomagnesemia; E87.6 Hypokalemia; G89.29 Other chronic pain; M54.9 Dorsalgia, unspecified; F32.9 Major depressive disorder, single episode, unspecified; E05.90 Thyrotoxicosis, unspecified without thyrotoxic crisis or storm; G47.33 Obstructive sleep apnea (adult) (pediatric); M72.2 Plantar fascial fibromatosis
CPT/HCPCS: 36415; 71045-TC-FY; 80048; 80053; 80061; 82550; 83036; 83721; 83735; 84100; 84436; 84439; 84443; 84445; 84481; 84484; 85025; 85027; 85610; 85730; 86376; 93005; 93010; 93306-TC; 99285-25

== ENCOUNTER 2019-02-19 05:04 | Day surgery (SDC) | payer BC ==
[2019-02-17 17:15] VITALS: BMI 44.3
[2019-02-19] MEDS ORDERED: MIDAZOLAM HCL 2 MG/2 ML SINGLE DOSE VIAL ONE (07:34)
[2019-02-19] MEDS ORDERED: PROPOFOL 20 ML ONE ×2 (07:36)
[2019-02-19] MEDS ORDERED: SUCCINYLCHOLINE CHLORIDE 200 MG/10 ML SYRINGE ONE (07:37)
[2019-02-19] MEDS ORDERED: ROCURONIUM BROMIDE 50 MG/5 ML SYRINGE ONE (07:37)
[2019-02-19] MEDS ORDERED: ceFAZolin SODIUM 1 GM VIAL IVPB ONE (07:54)
[2019-02-19] MEDS ORDERED: ACETAMINOPHEN INJECTION 100 ML IVPB ONE (08:25)
[2019-02-19] MEDS ORDERED: IBUPROFEN 800 MG/8 ML IJ IVPB ONE (08:27)
[2019-02-19] MEDS ORDERED: ONDANSETRON 4 MG/2 ML VIAL IVPUSH PRN (08:37)
[2019-02-19] MEDS ORDERED: oxyCODONE HCL 5 MG TABLET PO PRN (08:37)
[2019-02-19] MEDS ORDERED: PROMETHAZINE HCL 25 MG/1 ML VIAL IVPB PRN (08:37)
[2019-02-19] MEDS ORDERED: ACETAMINOPHEN 325 MG TABLET (FP) PO PRN (08:38)
[2019-02-19] MEDS ORDERED: IBUPROFEN 400 MG TABLET (FP) PO PRN (08:38)
--- NOTE | 2019-02-19 08:38 | HP ---
History & Physical Update - History History: No Change - Physical Physical: No Change - Assessment Assessment: No Change - Plan Plan: No Change
[2019-02-19] MEDS ORDERED: LACTATED RINGERS SOLUTION 1,000 ML IV SCH (08:45)
[2019-02-19] MEDS ORDERED: ACETAMINOPHEN 1000 MG/100 ML VIAL (NON FORMULARY) IVPB ONE (09:45)
[2019-02-19 11:17] VITALS: TEMP 97.8
[2019-02-19 12:17] VITALS: BP 102/61; PULSE 53
--- NOTE | 2019-02-19 13:27 | OP ---
DATE OF OPERATION: 02/19/2019 PREOPERATIVE DIAGNOSIS: Abnormal uterine bleeding and possible submucosal myoma. OPERATION: Hysteroscopic myomectomy and suction dilation and curettage. 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 SURGEON: Ninfa Fuller MD ANESTHESIA: General. ANESTHESIOLOGIST: Aster Morales MD FINDINGS: Intrauterine cavity was noted to have intrauterine adhesions. Patient is post ablation about 14 years ago as well as possible submucosal myoma. No signs of cancer seen. No polyps seen. DESCRIPTION OF PROCEDURE: Patient was taken to the operating room, placed in dorsal lithotomy position, prepped and draped in the usual sterile fashion. Time-out was performed in accordance with hospital regulation. Speculum was placed in the vagina. Anterior lip of the cervix was grasped with a single-tooth tenaculum. Cervix was then dilated to accommodate the operative hysteroscope. Operative hysteroscope was then inserted. Visualization revealed intrauterine synechia or scarring, and cautery and cutting was then used to cut the endometrial carroll at the fundal area, and submucosal myoma was seen and possible cutting of the myoma and submitted to Pathology. No signs of cancer were seen. No polyps were seen. All instruments were then removed. Patient had tolerated the procedure well. Estimated blood loss less than 5 mL. NINFA FULLER M.D. [id number]
--- NOTE | 2019-02-20 19:10 | PATH ---
Surgical Pathology Report Patient Name: DESTINY MAGALLANES [facility]. Rec. #: [id number] /Age/Gender: 1965 (Age: 53) / F Account: [id number] Location: [facility] SUR[facility] Taken: 02/19/2019 Received: 02/19/2019 Reported: 02/20/2019 Physicians: Ninfa Fuller M.D. Specimen(s) Received A: FIBROID B: ENDOMETRIAL CURETTINGS Clinical History Abnormal bleeding, submucosal myoma, scarring Final Diagnosis A. FIBROID, BIOPSY: FRAGMENTS OF ENDOMETRIAL POLYP. SEPARATE FRAGMENT OF ENDOMETRIAL TISSUE AND ADJACENT SMOOTH MUSCLE, MAY SUGGESTIVE OF SUBMUCOSAL LEIOMYOMA IN THE PROPER CLINICAL SETTING. B. ENDOMETRIAL CURETTINGS: POLYPOID WEAKLY PROLIFERATIVE ENDOMETRIUM WITH FIBROTIC STROMA, SUGGESTIVE OF ENDOMETRIAL POLYP. SEPARATE FRAGMENT OF SQUAMOUS EPITHELIUM WITH NO ATYPIA. Electronically Signed Glenda Andrade M.D. Gross Description A. Received in formalin, labeled "fibroid" are 3 kilpatrick, irregular portions of soft tissue measuring 0.4 x 0.3 x 0.2 cm in aggregate. The specimens are submitted in toto in one cassette. B. Received in formalin, labeled "endometrial curettings" are multiple irregular portions of soft tissue measuring 0.5 x 0.5 x 0.1cm in aggregate. The specimens are submitted in toto in one cassette. ZURDO/02/19/2019 colby/02/19/2019
== END 2019-02-19 13:21 | disposition home or self-care (01) ==
LOC: JASU-SURG 05:04
PROVIDERS: ATTEND Obstetrics & Gynecology
PROC: 0UB98ZZ Excision of Uterus, Via Natural or Artificial Opening Endoscopic (ICD-10-PCS; principal; 2019-02-19 07:30)
PROC: 0UDB8ZX Extraction of Endometrium, Via Natural or Artificial Opening Endoscopic, Diagnostic (ICD-10-PCS; 2019-02-19 07:30)
DX: D25.0 Submucous leiomyoma of uterus (principal); N93.9 Abnormal uterine and vaginal bleeding, unspecified; N85.6 Intrauterine synechiae
CPT/HCPCS: 88305-TC; 94760; J0131

== ENCOUNTER 2020-09-23 05:19 | Day surgery (SDC) | payer BC ==
[2020-09-22 10:26] VITALS: BMI 45.7
[2020-09-23] MEDS ORDERED: THROMBIN (BOVINE) 5,000 UNIT VIAL TP ONE ×2 (07:02→10:39)
[2020-09-23] MEDS ORDERED: LIDOCAINE 1%/EPI 1:100000 (50 ML MULTI DOSE VIAL) ONE (07:14)
[2020-09-23] MEDS ORDERED: fentaNYL CITRATE 250 MCG/5 ML VIAL ONE (07:38)
[2020-09-23] MEDS ORDERED: MIDAZOLAM HCL 2 MG/2 ML SINGLE DOSE VIAL ONE ×2 (07:38)
[2020-09-23] MEDS ORDERED: SUCCINYLCHOLINE CHLORIDE 200 MG/10 ML SYRINGE ONE (07:39)
[2020-09-23] MEDS ORDERED: PROPOFOL 20 ML ONE ×4 (07:39→09:48)
[2020-09-23] MEDS ORDERED: ROCURONIUM BROMIDE 50 MG/5 ML SYRINGE ONE (08:58)
[2020-09-23] MEDS ORDERED: ceFAZolin SODIUM 1 GM VIAL IVPB ONE (09:15)
[2020-09-23] MEDS ORDERED: BUPIVACAINE HCL/PF 0.5% (5MG/ML) 10 ML VIAL NR ONE ×2 (09:29)
[2020-09-23] MEDS ORDERED: LIDOCAINE 1%/EPI 1:100000 (20 ML MULTI DOSE VIAL) IJ ONE ×2 (09:29)
[2020-09-23] MEDS ORDERED: GELATIN, ABSORBABLE 12-7MM EACH SPONGE TP ONE (10:39)
[2020-09-23] MEDS ORDERED: LACTATED RINGERS SOLUTION 1,000 ML IV SCH ×2 (11:15→11:30)
[2020-09-23] MEDS ORDERED: ACETAMINOPHEN INJECTION 100 ML IVPB ONE (12:00)
[2020-09-23] MEDS ORDERED: ACETAMINOPHEN 1000 MG/100 ML VIAL (NON FORMULARY) IVPB ONE ×2 (12:00→12:11)
[2020-09-23] MEDS: CALCIUM CARBONATE 650 MG TABLET PO SCH (13:40)
[2020-09-23] MEDS ORDERED: IBUPROFEN 600 MG TABLET (FP) PO SCH (14:00)
[2020-09-23] MEDS: CALCITRIOL 0.25 MCG CAPSULE (FP) PO SCH (14:19)
[2020-09-23] MEDS: IBUPROFEN 600 MG TABLET (FP) PO PRN ×2 (14:36→22:37)
[2020-09-23] MEDS: ONDANSETRON 4 MG/2 ML VIAL IVPUSH PRN (18:36)
[2020-09-23] MEDS ORDERED: BUDESONIDE/FORMETEROL FUMARATE 160/4.5 mcg INHALER IH SCH (22:00)
[2020-09-23] MEDS ORDERED: PT OWN MED DRAWER 7, Y5N ONE (22:26)
[2020-09-24] MEDS ORDERED: PT OWN MED DRAWER 7, Y5N ONE ×2 (06:03→09:33)
[2020-09-24 06:16] VITALS: TEMP 97.9
[2020-09-24] MEDS ORDERED: LEVOTHYROXINE NA 200 MCG TABLET PO SCH (07:00)
[2020-09-24] MEDS: ONDANSETRON 4 MG/2 ML VIAL IVPUSH PRN (09:18)
[2020-09-24 09:30] VITALS: BP 100/59; PULSE 83
[2020-09-24] MEDS: CALCIUM CARBONATE 650 MG TABLET PO SCH ×2 (09:39→10:27)
[2020-09-24] MEDS ORDERED: HYDROCHLOROTHIAZIDE 25 MG TABLET (FP) PO SCH ×2 (10:00)
[2020-09-24] MEDS ORDERED: PANTOPRAZOLE 20 MG TABLET PO SCH ×2 (10:00)
[2020-09-24] MEDS ORDERED: METHIMAZOLE 10 MG TABLET (FP) PO SCH (10:00)
[2020-09-24] MEDS: CALCITRIOL 0.25 MCG CAPSULE (FP) PO SCH (10:27)
== END 2020-09-24 13:56 | disposition home or self-care (01) ==
LOC: JASU-SURG 05:19 → JASUSAT 05:19 → J6S 14:13 → JASUSAT 09-24 13:56
PROVIDERS: ATTEND Surgery
PROC: 0GBJ0ZZ Excision of Thyroid Gland Isthmus, Open Approach (ICD-10-PCS; 2020-09-23)
PROC: 0GTK0ZZ Resection of Thyroid Gland, Open Approach (ICD-10-PCS; principal; 2020-09-23 08:00)
DX: C73 Malignant neoplasm of thyroid gland (principal)
CPT/HCPCS: 94760; J0131

== ENCOUNTER 2021-06-06 08:10 | Inpatient (IN) | payer BC ==
[2021-06-06] MEDS ORDERED: ASPIRIN 81 MG CHEWABLE TABLETS PO ONE (08:20)
[2021-06-06] MEDS ORDERED: METOPROLOL TARTRATE 5 MG/5 ML VIAL IVPUSH ONE ×2 (08:23→08:53)
[2021-06-06] MEDS ORDERED: APIXABAN 5 MG TABLET PO ONE (08:24)
[2021-06-06] MEDS ORDERED: METOPROLOL TARTRATE 5 MG/5 ML VIAL ONE ×2 (08:29→08:40)
[2021-06-06] MEDS ORDERED: ASPIRIN 81 MG CHEWABLE TABLETS ONE (08:40)
[2021-06-06] MEDS ORDERED: APIXABAN 5 MG TABLET ONE (08:40)
[2021-06-06 08:45] VITALS: BMI 48.5
[2021-06-06 09:12] LABS: BASO % 0.5 % (0-2.0); EOS % 3.2 % (0-4.5); HEMATOCRIT 43.6 % (32.4-45.2); HEMOGLOBIN 14.7 GM/dL (10.7-15.3); LYMPH % 25.2 % (8-40); MCHC 33.6 g/dl (32.0-36.0); MEAN CELL VOLUME 80.4 fl (80-96); MEAN PLT VOLUME 8.4 fl (7.5-11.1); MONO % 5.8 % (3.8-10.2); NEUT % 65.3 % (42.8-82.8); PLATELET COUNT 309 10^3/uL (134-434); RBC 5.43 M/mm3 (3.60-5.2); RDW 14.7 % (11.6-15.6)
[2021-06-06 09:18] LABS: INR 1.08 (0.83-1.09); PROTHROMBIN TIME (PATIENT) 12.1 SEC (9.7-13.0)
[2021-06-06 09:21] LABS: ACTIVATED PTT 34.7 SECONDS (25.2-36.5)
[2021-06-06 09:27] LABS: CHLORIDE 107 mmol/L (98-107); SODIUM 142 mmol/L (136-145)
[2021-06-06 09:29] LABS: CALCIUM 8.5 mg/dL (8.5-10.1)
[2021-06-06 09:30] LABS: ALBUMIN 3.3 g/dl (3.4-5.0); ANION GAP 6 MMOL/L (8-16); BLOOD UREA NITROGEN 19.8 mg/dL (7-18); CO2 28 mmol/L (21-32); GLUCOSE,RANDOM 104 mg/dL (74-106); MAGNESIUM 2.1 mg/dL (1.8-2.4)
[2021-06-06 09:33] LABS: CREATININE 0.7 mg/dL (0.55-1.3); SGOT/AST 12 U/L (15-37); SGPT/ALT 18 U/L (13-61)
[2021-06-06 09:35] LABS: BILIRUBIN,TOTAL 0.4 mg/dL (0.2-1); TOT PROT 6.9 g/dl (6.4-8.2)
[2021-06-06 09:36] LABS: ALK PHOS 80 U/L (45-117)
[2021-06-06 09:38] LABS: N-TERMINAL BNP 788.4 pg/ml (5-125)
[2021-06-06] MEDS ORDERED: SODIUM CHLORIDE 500 ML IV STA (09:46)
[2021-06-06 10:25] LABS: CHOLESTEROL 180 mg/dL (50-200); TRIGLYCERIDES 120 mg/dL (0-150)
[2021-06-06 10:26] LABS: LDL CHOLESTEROL (ONLY SJRH) 102 mg/dL (5-100)
[2021-06-06 10:28] LABS: HDL CHOLESTEROL 48 mg/dL (40-60)
[2021-06-06] MEDS ORDERED: PANTOPRAZOLE 40 MG TABLET ONE (12:10)
[2021-06-06] MEDS: PANTOPRAZOLE 40 MG TABLET PO SCH (12:29)
[2021-06-06] MEDS: dilTIAZem HCL 30 MG TABLET PO SCH ×3 (16:21→23:52)
[2021-06-06] MEDS: APIXABAN 5 MG TABLET PO SCH (21:08)
[2021-06-07] MEDS: dilTIAZem HCL 30 MG TABLET PO SCH ×3 (06:10→18:15)
[2021-06-07] MEDS ORDERED: PT OWN MED DRAWER 7, Y5N ONE ×2 (09:01→11:11)
[2021-06-07] MEDS: PANTOPRAZOLE 40 MG TABLET PO SCH (09:12)
[2021-06-07] MEDS: APIXABAN 5 MG TABLET PO SCH (09:12)
[2021-06-07] MEDS ORDERED: BUDESONIDE/FORMETEROL FUMARATE 160/4.5 mcg INHALER IH SCH (10:00)
[2021-06-07] MEDS ORDERED: PARoxetine HCL 10 MG TABLET PO SCH (10:00)
[2021-06-07] MEDS ORDERED: propRANOLol HCL 10 MG TABLET PO SCH (10:00)
[2021-06-07 18:09] VITALS: BP 124/89; PULSE 61; TEMP 98.1
[2021-06-08] MEDS ORDERED: LEVOTHYROXINE 100 MCG, LEVOTHYROXINE 88 MCG PO SCH (07:00)
[2021-06-08] MEDS ORDERED: LEVOTHYROXINE NA 200 MCG TABLET PO SCH (07:00)
== END 2021-06-07 19:34 | disposition home or self-care (01) | DRG 309 ==
LOC: JER 08:10 → JERBED 10:39 → JICU 15:37 → J2W 15:41
PROVIDERS: ADMIT Internal Medicine; ATTEND Internal Medicine
DX: I48.91 Unspecified atrial fibrillation (principal); Z68.42 Body mass index [BMI] 45.0-49.9, adult; E66.01 Morbid (severe) obesity due to excess calories; G47.30 Sleep apnea, unspecified; F41.8 Other specified anxiety disorders; J45.909 Unspecified asthma, uncomplicated
CPT/HCPCS: 36415; 71045-TC-FY; 80053; 80061; 82550; 83036; 83735; 83880; 84436; 84439; 84443; 84479; 84484; 85025; 85610; 85730; 93005; 93010; 99285-25; C9803; U0003; U0005

== ENCOUNTER 2024-06-09 04:34 | Day surgery (SDC) | payer BC ==
[2024-06-03 16:00] VITALS: BMI 48.6
[2024-06-09 07:20] VITALS: RESP 18
[2024-06-09 09:10] VITALS: TEMP 98.4
[2024-06-09 09:53] VITALS: BP 97/65; PULSE 52
== END 2024-06-09 09:54 | disposition home or self-care (01) ==
LOC: JASU-ENDO 04:34
PROVIDERS: ATTEND Internal Medicine Gastroenterology
PROC: 0DBN8ZX Excision of Sigmoid Colon, Via Natural or Artificial Opening Endoscopic, Diagnostic (ICD-10-PCS; principal; 2024-06-09 07:45)
DX: Z12.11 Encounter for screening for malignant neoplasm of colon (principal); D12.5 Benign neoplasm of sigmoid colon; K57.30 Diverticulosis of large intestine without perforation or abscess without bleeding; K64.8 Other hemorrhoids
CPT/HCPCS: 88305-TC; 88342-TC